=== PATIENT | female | born 1950 | race African-American/Black ===

== ENCOUNTER 2023-11-04 17:31 | Emergency (ER) | payer OTHER ==
[~2023-11-04] VITALS: Ht 167.6 cm; Wt 74.8 kg
[2023-11-04] MEDS ORDERED: OXYMETAZOLINE HCL NASAL SPRAY 30 ML BOTTLE NS ONE (18:33)
[2023-11-04] MEDS ORDERED: CLONIDINE HCL 0.1 MG TABLET ONE (18:34)
[2023-11-04] MEDS: OXYMETAZOLINE HCL NASAL SPRAY 30 ML BOTTLE NS ONE (18:39)
[2023-11-04] MEDS: CLONIDINE HCL 0.1 MG TABLET PO ONE (18:40)
[2023-11-04] MEDS ORDERED: TRANEXAMIC ACID 1,000 MG/10 ML VIAL ONE (19:42)
[2023-11-04] MEDS: TRANEXAMIC ACID 1,000 MG/10 ML VIAL NS ONE (19:59)
[2023-11-04] MEDS ORDERED: CLONIDINE HCL 0.1 MG TABLET PO ONE (20:00)
[2023-11-04] MEDS ORDERED: BENA20TA9 PO (21:21)
[2023-11-04] MEDS ORDERED: SODI88SP18 BNOSTRILS (21:21)
[2023-11-04 21:41] VITALS: BP 165/79; TEMP 98.5; O2SAT 98
== END 2023-11-04 21:41 | disposition home or self-care (01) ==
LOC: ER 18:56
DX: R04.0 Epistaxis (principal); I10 Essential (primary) hypertension; Z79.899 Other long term (current) drug therapy

== ENCOUNTER 2024-04-16 11:18 | Inpatient (IN) | payer OTHER ==
[~2024-04-16] VITALS: Ht 154.9 cm; Wt 56.2 kg
[2024-04-16] VITALS (14 sets, daily range): BP systolic 88–100; BP diastolic 47–74; TEMP 97.9; O2SAT 92–100
[~2024-04-16 11:18] MED LIST: BENA20TA9 PO; SODI88SP18 BNOSTRILS
[2024-04-16 11:55] LABS: BASOPHILS % (AUTO) 0.1 % (0.0-2.0); EOSINOPHILS % (AUTO) 0.3 % (0.0-6.0); HEMATOCRIT 26 % (33-45); LYMPHOCYTES # (AUTO) 0.5 K/uL (0.8-4.8); LYMPHOCYTES % (AUTO) 5.5 % (20.0-44.0); MEAN CORPUSCULAR HEMOGLOBIN 26 PG (26.0-33.0); MEAN CORPUSCULAR HGB CONC 31 g/dl (31.0-36.0); MEAN CORPUSCULAR VOLUME 85 fL (82-100); MONOCYTES # (AUTO) 0.3 K/uL (0.1-1.30); MONOCYTES % (AUTO) 3.7 % (2.0-12.0); NEUTROPHILS # (AUTO) 8.5 K/uL (1.8-8.9); NEUTROPHILS % (AUTO) 90.4 % (43.0-81.0); PLATELET COUNT (AUTO) 181 K/uL (150-450); RED BLOOD CELL COUNT(AUTO) 3.08 MIL/uL (4.0-5.2); WHITE BLOOD COUNT (AUTO) 9.4 K/uL (4.3-11.0)
[2024-04-16 11:58] LABS: ABG OXYGEN SATURATION 98.9 % (94.0-98.0); ABG PCO2 48.9 mmHg (32.0-45.0); ABG PH 7.215 (7.350-7.450); ABG PO2 159.2 mmHg (83.0-108.0); ABG TOTAL HEMOGLOBIN 8.1 G/dL (12.0-16.0); COHb 0.9 % (0.5-1.5); MetHb 0.3 % (0.0-1.5); O2Hb 97.7 % (94.0-97.0); SITE, ABG RIGHT RADIAL
[2024-04-16] MEDS ORDERED: DIGOXIN INJ 0.5 MG/2 ML AMPUL ONE (11:58)
[2024-04-16] MEDS ORDERED: FUROSEMIDE 40 MG/4 ML VIAL ONE (11:59)
[2024-04-16 12:05] LABS: CARBON DIOXIDE 22 mmol/L (21-32); CHLORIDE 99 mmol/L (98-107); CREATININE 3.7 mg/dL (0.6-1.3); GLUCOSE 118 mg/dL (74-106); SODIUM SERUM 133 mmol/L (136-145); UREA NITROGEN, BLOOD 55 mg/dL (7-18)
[2024-04-16 12:11] LABS: INR 1.4 (0.91-1.10); PROTHROMBIN TIME 14.2 SECS (9.2-11.1)
[2024-04-16 12:15] LABS: LACTIC ACID 7.3 mmol/L (0.4-2.0)
[2024-04-16 12:22] LABS: ALANINE AMINOTRANSFERASE 17 U/L (12-78); ALBUMIN 1.8 g/dL (3.4-5.0); ALKALINE PHOSPHATASE 43 U/L (46-116); ASPARTATE AMINOTRANSFERASE 37 U/L (15-37); BILIRUBIN,DIRECT 1.6 mg/dL (0.0-0.2); BILIRUBIN,TOTAL 2.2 mg/dL (0.2-1.0); TOTAL PROTEIN, SERUM 13.2 g/dL (6.4-8.2)
[2024-04-16] MEDS: DIGOXIN INJ 0.5 MG/2 ML AMPUL IV ONE (12:23)
[2024-04-16] MEDS: FUROSEMIDE 40 MG/4 ML VIAL IV ONE ×2 (12:23→17:21)
[2024-04-16] MEDS: CEFTRIAXONE 1GM BAG (ER ONLY) 50 ML IV ONE (12:40)
[2024-04-16] MEDS: AZITHROMYCIN 500 MG in IV D5W 250 ML IV ONE (13:00)
[2024-04-16] MEDS ORDERED: ACETAMINOPHEN 325 MG TABLET PO PRN (13:00)
[2024-04-16 13:10] LABS: NT-PRO BNP 84573 pg/mL (0-125)
[2024-04-16] MEDS ORDERED: CEFEPIME 2 GM in IV D5W 100 ML IV SCH (16:00)
[2024-04-16] MEDS ORDERED: ENOXAPARIN SODIUM 30 MG/0.3 ML DISP.SYRIN SQ SCH (16:00)
[2024-04-16] MEDS: AMIODARONE 150 MG in IV D5W 100 ML IV ONE (16:09)
[2024-04-16] MEDS: AMIODARONE 450 MG in IV D5W 250 ML IV ONE (16:25)
[2024-04-16] MEDS: VANCOMYCIN HCL 1.25 GM in IV D5W 250 ML IV ONE (17:18)
[2024-04-16] MEDS ORDERED: AMIODARONE 450 MG in IV D5W 241 ML IV PRN (17:30)
[2024-04-16] MEDS: CEFEPIME 1 GM in IV D5W 50 ML IV SCH (17:55)
[2024-04-16] MEDS: ASPIRIN 300 MG/SUPP.RECT RC ONE (18:22)
[2024-04-16] MEDS: HEPARIN SODIUM, PORCINE 5000 UNITS/1 ML VIAL IV ONE (18:25)
[2024-04-16] MEDS: HEPARIN INFUSION/D5W 500 ML IV PRN (18:27)
[2024-04-16] MEDS: AMIODARONE 450 MG in IV D5W 241 ML IV PRN (22:46)
[2024-04-17] VITALS (43 sets, daily range): BP systolic 91–119; BP diastolic 49–74; TEMP 97.5–97.9; O2SAT 96–100
[2024-04-17 05:01] LABS: BASOPHILS % (AUTO) 0.4 % (0.0-2.0); EOSINOPHILS % (AUTO) 0.5 % (0.0-6.0); LYMPHOCYTES # (AUTO) 0.1 K/uL (0.8-4.8); LYMPHOCYTES % (AUTO) 3.8 % (20.0-44.0); MEAN CORPUSCULAR HEMOGLOBIN 26 PG (26.0-33.0); MEAN CORPUSCULAR HGB CONC 31 g/dl (31.0-36.0); MEAN CORPUSCULAR VOLUME 84 fL (82-100); MONOCYTES # (AUTO) 0.3 K/uL (0.1-1.30); MONOCYTES % (AUTO) 8.1 % (2.0-12.0); NEUTROPHILS # (AUTO) 2.9 K/uL (1.8-8.9); NEUTROPHILS % (AUTO) 87.2 % (43.0-81.0); PLATELET COUNT (AUTO) 118 K/uL (150-450); RED BLOOD CELL COUNT(AUTO) 2.26 MIL/uL (4.0-5.2); RED CELL DISTRIBUTION WIDTH 21.7 % (11.5-15.0); WHITE BLOOD COUNT (AUTO) 3.3 K/uL (4.3-11.0)
[2024-04-17 05:13] LABS: HEMATOCRIT 19 % (33-45)
[2024-04-17 05:56] LABS: ALANINE AMINOTRANSFERASE 9 U/L (12-78); ALKALINE PHOSPHATASE 24 U/L (46-116); ASPARTATE AMINOTRANSFERASE 17 U/L (15-37); BILIRUBIN,TOTAL 1.5 mg/dL (0.2-1.0); CALCIUM, SERUM 8.1 mg/dL (8.5-10.1); CARBON DIOXIDE 21 mmol/L (21-32); CHLORIDE 100 mmol/L (98-107); CREATININE 3.9 mg/dL (0.6-1.3); GLUCOSE 97 mg/dL (74-106); MAGNESIUM 2.1 mg/dL (1.8-2.4); PHOSPHORUS 5.4 mg/dL (2.5-4.9); POTASSIUM 4.8 mmol/L (3.5-5.1); SODIUM SERUM 134 mmol/L (136-145); TOTAL PROTEIN, SERUM 9.6 g/dL (6.4-8.2); UREA NITROGEN, BLOOD 64 mg/dL (7-18)
[2024-04-17 06:07] LABS: ALBUMIN 1.4 g/dL (3.4-5.0)
[2024-04-17 07:59] LABS: ABG BASE EXCESS -2.7 mmol/L (-2.0-3.0); ABG OXYGEN SATURATION 97.2 % (94.0-98.0); ABG PCO2 42.5 mmHg (32.0-45.0); ABG PH 7.347 (7.350-7.450); ABG TOTAL HEMOGLOBIN 7.4 G/dL (12.0-16.0); COHb 1.2 % (0.5-1.5); MetHb 0.3 % (0.0-1.5); O2Hb 95.7 % (94.0-97.0); SITE, ABG RIGHT RADIAL
[2024-04-17 09:05] LABS: EOSINOPHILS % (AUTO) 0.7 % (0.0-6.0); HEMATOCRIT 23 % (33-45); HEMOGLOBIN 7.3 g/dL (11.5-14.8); LYMPHOCYTES # (AUTO) 0.1 K/uL (0.8-4.8); LYMPHOCYTES % (AUTO) 3.7 % (20.0-44.0); MEAN CORPUSCULAR HEMOGLOBIN 26 PG (26.0-33.0); MEAN CORPUSCULAR HGB CONC 32 g/dl (31.0-36.0); MEAN CORPUSCULAR VOLUME 82 fL (82-100); MONOCYTES # (AUTO) 0.2 K/uL (0.1-1.30); MONOCYTES % (AUTO) 6.7 % (2.0-12.0); NEUTROPHILS # (AUTO) 3.1 K/uL (1.8-8.9); NEUTROPHILS % (AUTO) 88.9 % (43.0-81.0); PLATELET COUNT (AUTO) 125 K/uL (150-450); RED BLOOD CELL COUNT(AUTO) 2.81 MIL/uL (4.0-5.2); WHITE BLOOD COUNT (AUTO) 3.5 K/uL (4.3-11.0)
[2024-04-17 10:00] LABS: BAND % (MANUAL) 4 % (0.0-5.0); LYMPHOCYTES % (MANUAL) 3 % (16-48); NEUTROPHILS % (MANUAL) 43 (42-76); PLATELET ESTIMATE DECREASED
[2024-04-17 10:01] LABS: ANISOCYTOSIS 1+; HYPOCHROMASIA 1+
[2024-04-17] MEDS: ALBUMIN 25% 25 GM in PREMIX 1 EA IV SCH (11:47)
[2024-04-17] MEDS ORDERED: CEFTRIAXONE 1 G in IV D5W 50 ML IV SCH (13:00)
[2024-04-17] MEDS: AZITHROMYCIN 500 MG in IV D5W 250 ML IV SCH (13:01)
[2024-04-18] VITALS (25 sets, daily range): BP systolic 97–150; BP diastolic 53–89; TEMP 97.6–98.1; O2SAT 96–100
[2024-04-18 05:30] LABS: BASOPHILS % (AUTO) 0.1 % (0.0-2.0); EOSINOPHILS % (AUTO) 0.1 % (0.0-6.0); LYMPHOCYTES # (AUTO) 0.1 K/uL (0.8-4.8); LYMPHOCYTES % (AUTO) 1.8 % (20.0-44.0); MEAN CORPUSCULAR HEMOGLOBIN 26 PG (26.0-33.0); MEAN CORPUSCULAR HGB CONC 32 g/dl (31.0-36.0); MEAN CORPUSCULAR VOLUME 81 fL (82-100); MONOCYTES # (AUTO) 0.3 K/uL (0.1-1.30); PLATELET COUNT (AUTO) 129 K/uL (150-450); RED BLOOD CELL COUNT(AUTO) 2.49 MIL/uL (4.0-5.2); RED CELL DISTRIBUTION WIDTH 21.3 % (11.5-15.0); WHITE BLOOD COUNT (AUTO) 6.5 K/uL (4.3-11.0)
[2024-04-18 05:35] LABS: ALANINE AMINOTRANSFERASE 12 U/L (12-78); ALBUMIN 2.6 g/dL (3.4-5.0); ALKALINE PHOSPHATASE 26 U/L (46-116); ASPARTATE AMINOTRANSFERASE 13 U/L (15-37); BILIRUBIN,TOTAL 1.7 mg/dL (0.2-1.0); CALCIUM, SERUM 8.3 mg/dL (8.5-10.1); CARBON DIOXIDE 23 mmol/L (21-32); CHLORIDE 98 mmol/L (98-107); CREATININE 4.8 mg/dL (0.6-1.3); GLUCOSE 105 mg/dL (74-106); MAGNESIUM 2.1 mg/dL (1.8-2.4); PHOSPHORUS 5.1 mg/dL (2.5-4.9); POTASSIUM 4.3 mmol/L (3.5-5.1); SODIUM SERUM 133 mmol/L (136-145); TOTAL PROTEIN, SERUM 9.6 g/dL (6.4-8.2)
[2024-04-18 05:39] LABS: CREATINE KINASE, TOTAL 44 U/L (26-192)
[2024-04-18 05:41] LABS: HEMATOCRIT 20 % (33-45); HEMOGLOBIN 6.5 g/dL (11.5-14.8)
[2024-04-18 05:49] LABS: UREA NITROGEN, BLOOD 83 mg/dL (7-18)
[2024-04-18 06:37] LABS: BAND % (MANUAL) 3 % (0.0-5.0); BASOPHILS % (MANUAL) 0 % (0.0-2.0); EOSINOPHILS % (MANUAL) 0 % (0-4); LYMPHOCYTES % (MANUAL) 2 % (16-48); MONOCYTES % (MANUAL) 5 % (0-11.0); NEUTROPHILS % (MANUAL) 90 (42-76)
[2024-04-18 06:38] LABS: ANISOCYTOSIS 1+; HYPOCHROMASIA 1+; PLATELET ESTIMATE DECREASED; TARGET CELLS 1+
[2024-04-18 08:05] LABS: ABG BASE EXCESS -4.9 mmol/L (-2.0-3.0); ABG PCO2 40.7 mmHg (32.0-45.0); ABG PH 7.325 (7.350-7.450); ABG TOTAL HEMOGLOBIN 7.1 G/dL (12.0-16.0); COHb 1.6 % (0.5-1.5); MetHb 0.3 % (0.0-1.5); O2Hb 95.2 % (94.0-97.0); SITE, ABG RIGHT RADIAL
[2024-04-18 11:38] LABS: IRON, SERUM 14 ug/dl (50-175); TOTAL IRON BINDING CAPACITY 157 ug/dl (250-450)
[2024-04-18 11:55] LABS: FERRITIN 151 ng/mL (8-388)
[2024-04-18] MEDS: DOXYCYCLINE 100 MG in IV D5W 100 ML IV SCH (23:04)
[2024-04-19] VITALS (30 sets, daily range): BP systolic 96–151; BP diastolic 53–95; TEMP 97.4–98.2; O2SAT 85–100
[2024-04-19 09:08] LABS: PTH, INTACT 96 pg/mL (15-65)
[2024-04-19 09:36] LABS: BASOPHILS % (AUTO) 0.1 % (0.0-2.0); HEMATOCRIT 25 % (33-45); HEMOGLOBIN 8.1 g/dL (11.5-14.8); LYMPHOCYTES # (AUTO) 0.4 K/uL (0.8-4.8); LYMPHOCYTES % (AUTO) 2.3 % (20.0-44.0); MEAN CORPUSCULAR HEMOGLOBIN 26 PG (26.0-33.0); MEAN CORPUSCULAR HGB CONC 32 g/dl (31.0-36.0); MEAN CORPUSCULAR VOLUME 80 fL (82-100); NEUTROPHILS # (AUTO) 14.7 K/uL (1.8-8.9); NEUTROPHILS % (AUTO) 91.6 % (43.0-81.0); PLATELET COUNT (AUTO) 189 K/uL (150-450); RED BLOOD CELL COUNT(AUTO) 3.16 MIL/uL (4.0-5.2); RED CELL DISTRIBUTION WIDTH 20.9 % (11.5-15.0)
[2024-04-19 09:51] LABS: CALCIUM, SERUM 8.9 mg/dL (8.5-10.1); CREATININE 5.6 mg/dL (0.6-1.3); POTASSIUM 4.8 mmol/L (3.5-5.1)
[2024-04-19] MEDS: PANTOPRAZOLE 40 MG VIAL IV SCH (11:25)
[2024-04-19] MEDS: EPOETIN ALFA (10,000 UNIT) 10,000 UNIT/ML VIAL SQ SCH (14:33)
[2024-04-19] MEDS ORDERED: VANCOMYCIN HCL 1.25 GM in IV D5W 250 ML IV SCH (16:00)
[2024-04-20] VITALS (40 sets, daily range): BP systolic 94–145; BP diastolic 43–102; TEMP 97.2–97.8; O2SAT 92–100
[2024-04-20 05:44] LABS: BASOPHILS # (AUTO) 0.1 K/uL (0.0-0.2); BASOPHILS % (AUTO) 0.5 % (0.0-2.0); EOSINOPHILS % (AUTO) 0.1 % (0.0-6.0); HEMATOCRIT 24 % (33-45); HEMOGLOBIN 7.3 g/dL (11.5-14.8); LYMPHOCYTES # (AUTO) 0.2 K/uL (0.8-4.8); LYMPHOCYTES % (AUTO) 1.1 % (20.0-44.0); MEAN CORPUSCULAR HEMOGLOBIN 25 PG (26.0-33.0); MEAN CORPUSCULAR HGB CONC 31 g/dl (31.0-36.0); MEAN CORPUSCULAR VOLUME 81 fL (82-100); MONOCYTES # (AUTO) 0.6 K/uL (0.1-1.30); MONOCYTES % (AUTO) 4.1 % (2.0-12.0); NEUTROPHILS # (AUTO) 13.8 K/uL (1.8-8.9); NEUTROPHILS % (AUTO) 94.2 % (43.0-81.0); PLATELET COUNT (AUTO) 155 K/uL (150-450); RED BLOOD CELL COUNT(AUTO) 2.91 MIL/uL (4.0-5.2); RED CELL DISTRIBUTION WIDTH 20.6 % (11.5-15.0); WHITE BLOOD COUNT (AUTO) 14.7 K/uL (4.3-11.0)
[2024-04-20 05:49] LABS: CALCIUM, SERUM 8.9 mg/dL (8.5-10.1); CREATININE 5.9 mg/dL (0.6-1.3); MAGNESIUM 2.3 mg/dL (1.8-2.4); PHOSPHORUS 5.4 mg/dL (2.5-4.9); POTASSIUM 4.4 mmol/L (3.5-5.1)
[2024-04-20 09:07] LABS: *SPE A/G RATIO 0.5 (0.7-1.7); *SPE ALBUMIN 3.1 g/dL (2.9-4.4); *SPE ALPHA-1-GLOBULIN 0.5 g/dL (0.0-0.4); *SPE ALPHA-2-GLOBULIN 1.1 g/dL (0.4-1.0); *SPE BETA GLOBULIN 0.6 g/dL (0.7-1.3); *SPE GLOBULIN, TOTAL 5.8 g/dL (2.2-3.9); *SPE M-SPIKE 3.4 g/dL (Not Observed); *SPE PROTEIN TOTAL 8.9 g/dL (6.0-8.5); *SPEGAMMA GLOBULIN 3.7 g/dL (0.4-1.8)
[2024-04-20] MEDS ORDERED: EPOETIN ALFA (10,000 UNIT) 10,000 UNIT/ML VIAL SQ SCH (09:30)
[2024-04-20 10:37] LABS: ABG BASE EXCESS -6.1 mmol/L (-2.0-3.0); ABG OXYGEN SATURATION 97.7 % (94.0-98.0); ABG PCO2 46.4 mmHg (32.0-45.0); ABG PH 7.263 (7.350-7.450); ABG PO2 111.3 mmHg (83.0-108.0); ABG TOTAL HEMOGLOBIN 7.9 G/dL (12.0-16.0); COHb 1.3 % (0.5-1.5); MetHb 0.3 % (0.0-1.5); O2Hb 96.1 % (94.0-97.0); SITE, ABG RIGHT RADIAL
[2024-04-20] MEDS: SOD FERRIC GLUC 125 MG in IV NS 0.9% 100 ML IV SCH (14:26)
[2024-04-20 14:27] LABS: ABG BASE EXCESS -7.5 mmol/L (-2.0-3.0); ABG OXYGEN SATURATION 98.2 % (94.0-98.0); ABG PCO2 45.8 mmHg (32.0-45.0); ABG PH 7.243 (7.350-7.450); ABG PO2 116.8 mmHg (83.0-108.0); COHb 1.4 % (0.5-1.5); MetHb 0.1 % (0.0-1.5); O2Hb 96.7 % (94.0-97.0)
[2024-04-20 16:14] LABS: PROTEIN, BODY FLUID 6.9 G/DL
[2024-04-20 16:19] LABS: WBC, BODY FLUID 26716 /cu. mm. (0-200)
[2024-04-20 16:59] LABS: TOTAL VOLUME,BODY FLUID 1100 mL
[2024-04-20 17:35] LABS: APPEARANCE,SPUN,BODY FLUID CLEAR (CLEAR)
[2024-04-20 20:27] LABS: MACROPHAGES, BODY FLUID 2; MONOCYTES,BODY FLUID 10 %; POLYNUCLEAR, BODY FLUID 72 % (0-25)
[2024-04-21] VITALS (87 sets, daily range): BP systolic 83–135; BP diastolic 38–88; TEMP 97.5–97.9; O2SAT 90–100
[2024-04-21 08:04] LABS: ABG BASE EXCESS -2.9 mmol/L (-2.0-3.0); ABG PCO2 46.5 mmHg (32.0-45.0); ABG PH 7.315 (7.350-7.450); ABG TOTAL HEMOGLOBIN 7.5 G/dL (12.0-16.0); COHb 1.3 % (0.5-1.5); MetHb 0.1 % (0.0-1.5); O2Hb 96.6 % (94.0-97.0); SITE, ABG RIGHT BRACHIAL
[2024-04-21 10:43] LABS: CALCIUM, SERUM 7.9 mg/dL (8.5-10.1); CARBON DIOXIDE 27 mmol/L (21-32); CHLORIDE 99 mmol/L (98-107); CREATININE 5.2 mg/dL (0.6-1.3); GLUCOSE 99 mg/dL (74-106); SODIUM SERUM 135 mmol/L (136-145)
[2024-04-21 10:44] LABS: BASOPHILS % (AUTO) 0.1 % (0.0-2.0); HEMATOCRIT 21 % (33-45); LYMPHOCYTES # (AUTO) 0.2 K/uL (0.8-4.8); MEAN CORPUSCULAR HEMOGLOBIN 25 PG (26.0-33.0); MEAN CORPUSCULAR HGB CONC 31 g/dl (31.0-36.0); MEAN CORPUSCULAR VOLUME 79 fL (82-100); MONOCYTES # (AUTO) 0.4 K/uL (0.1-1.30); MONOCYTES % (AUTO) 2.4 % (2.0-12.0); NEUTROPHILS # (AUTO) 16.8 K/uL (1.8-8.9); NEUTROPHILS % (AUTO) 96.5 % (43.0-81.0); PLATELET COUNT (AUTO) 147 K/uL (150-450); RED BLOOD CELL COUNT(AUTO) 2.59 MIL/uL (4.0-5.2); RED CELL DISTRIBUTION WIDTH 20.6 % (11.5-15.0); WHITE BLOOD COUNT (AUTO) 17.4 K/uL (4.3-11.0)
[2024-04-21 10:45] LABS: UREA NITROGEN, BLOOD 98 mg/dL (7-18)
[2024-04-21 10:47] LABS: INR 1.14 (0.91-1.10)
[2024-04-21 10:53] LABS: HEMOGLOBIN 6.4 g/dL (11.5-14.8)
[2024-04-21 14:00] LABS: BAND % (MANUAL) 2 % (0.0-5.0); LYMPHOCYTES % (MANUAL) 2 % (16-48)
[2024-04-21 14:01] LABS: ANISOCYTOSIS 2+; HYPOCHROMASIA 1+; MONOCYTES % (MANUAL) 3 % (0-11.0); MYELOCYTES % 1 % (0-0); NEUTROPHILS % (MANUAL) 92 (42-76)
[2024-04-21 14:02] LABS: PLATELET ESTIMATE DECREASED; TARGET CELLS 1+
[2024-04-21] MEDS: IV NS 0.9% 250 ML IV PRN (20:01)
[2024-04-22] VITALS (78 sets, daily range): BP systolic 95–143; BP diastolic 43–79; TEMP 97.3–97.8; O2SAT 97–100
[2024-04-22 05:36] LABS: BASOPHILS % (AUTO) 0.1 % (0.0-2.0); EOSINOPHILS % (AUTO) 0.1 % (0.0-6.0); LYMPHOCYTES # (AUTO) 0.2 K/uL (0.8-4.8); MEAN CORPUSCULAR HEMOGLOBIN 26 PG (26.0-33.0); MEAN CORPUSCULAR HGB CONC 33 g/dl (31.0-36.0); MEAN CORPUSCULAR VOLUME 78 fL (82-100); MONOCYTES # (AUTO) 0.4 K/uL (0.1-1.30); MONOCYTES % (AUTO) 2.6 % (2.0-12.0); NEUTROPHILS # (AUTO) 15.7 K/uL (1.8-8.9); NEUTROPHILS % (AUTO) 96.2 % (43.0-81.0); PLATELET COUNT (AUTO) 131 K/uL (150-450); RED BLOOD CELL COUNT(AUTO) 2.26 MIL/uL (4.0-5.2); RED CELL DISTRIBUTION WIDTH 19.9 % (11.5-15.0); WHITE BLOOD COUNT (AUTO) 16.4 K/uL (4.3-11.0)
[2024-04-22 06:01] LABS: CALCIUM, SERUM 8.1 mg/dL (8.5-10.1); CREATININE 4.1 mg/dL (0.6-1.3); POTASSIUM 3.5 mmol/L (3.5-5.1)
[2024-04-22 06:36] LABS: HEMOGLOBIN 5.8 g/dL (11.5-14.8)
[2024-04-22 06:37] LABS: HEMATOCRIT 18 % (33-45)
[2024-04-22 07:06] LABS: HEPATITIS B CORE AB, IgM Negative (Negative); HEPATITIS B CORE AB, TOTAL Negative (Negative); HEPATITIS B SURFACE AB Non Reactive (.)
[2024-04-22 09:58] LABS: ABG BASE EXCESS 0.5 mmol/L (-2.0-3.0); ABG OXYGEN SATURATION 99.3 % (94.0-98.0); ABG PCO2 40.7 mmHg (32.0-45.0); ABG PH 7.409 (7.350-7.450); ABG PO2 155.6 mmHg (83.0-108.0); ABG TOTAL HEMOGLOBIN 6.8 G/dL (12.0-16.0); COHb 1.6 % (0.5-1.5); MetHb 0.3 % (0.0-1.5); O2Hb 97.4 % (94.0-97.0); SITE, ABG LEFT RADIAL
[2024-04-22 12:17] LABS: ANISOCYTOSIS 1+; BAND % (MANUAL) 5 % (0.0-5.0); BASOPHILS % (MANUAL) 0 % (0.0-2.0); EOSINOPHILS % (MANUAL) 0 % (0-4); HYPOCHROMASIA 1+; LYMPHOCYTES % (MANUAL) 3 % (16-48); MONOCYTES % (MANUAL) 2 % (0-11.0); NEUTROPHILS % (MANUAL) 90 (42-76); PLATELET ESTIMATE DECREASED
[2024-04-22] MEDS: NEPRO 1,000 ML BOTTLE GT PRN (15:18)
[2024-04-22] MEDS: FOLIC ACID 1 MG TABLET PO SCH (17:49)
[2024-04-22 19:47] LABS: RHEUMATOID FACTOR SCREEN NEGATIVE (NEGATIVE)
[2024-04-22 20:00] LABS: INR 1.23 (0.91-1.10); PARTIAL THROMBOPLASTIN TIME 41.9 SEC (24.3-34.3); PROTHROMBIN TIME 12.9 SECS (9.2-11.1)
[2024-04-22 20:09] LABS: BILIRUBIN,DIRECT 0.8 mg/dL (0.0-0.2); BILIRUBIN,TOTAL 1.2 mg/dL (0.2-1.0)
[2024-04-23] VITALS (26 sets, daily range): BP systolic 105–142; BP diastolic 44–72; TEMP 97.1–98; O2SAT 99–100
[2024-04-23 03:54] LABS: D-DIMER 16.83 mg/L(FEU (0.17-0.50)
[2024-04-23 08:40] LABS: BASOPHILS % (AUTO) 0.1 % (0.0-2.0); EOSINOPHILS % (AUTO) 0.2 % (0.0-6.0); INR 1.22 (0.91-1.10); LYMPHOCYTES # (AUTO) 0.2 K/uL (0.8-4.8); MEAN CORPUSCULAR HEMOGLOBIN 25 PG (26.0-33.0); MEAN CORPUSCULAR HGB CONC 31 g/dl (31.0-36.0); MEAN CORPUSCULAR VOLUME 79 fL (82-100); MONOCYTES # (AUTO) 0.5 K/uL (0.1-1.30); MONOCYTES % (AUTO) 2.6 % (2.0-12.0); NEUTROPHILS # (AUTO) 17.9 K/uL (1.8-8.9); NEUTROPHILS % (AUTO) 96.1 % (43.0-81.0); PARTIAL THROMBOPLASTIN TIME 35.4 SEC (24.3-34.3); PLATELET COUNT (AUTO) 142 K/uL (150-450); PROTHROMBIN TIME 12.8 SECS (9.2-11.1); RED BLOOD CELL COUNT(AUTO) 2.38 MIL/uL (4.0-5.2); RED CELL DISTRIBUTION WIDTH 20.8 % (11.5-15.0); WHITE BLOOD COUNT (AUTO) 18.6 K/uL (4.3-11.0)
[2024-04-23 08:43] LABS: D-DIMER 14.35 mg/L(FEU (0.17-0.50)
[2024-04-23 08:55] LABS: CALCIUM, SERUM 8.5 mg/dL (8.5-10.1); POTASSIUM 3.7 mmol/L (3.5-5.1)
[2024-04-23 08:56] LABS: HEMOGLOBIN 5.9 g/dL (11.5-14.8)
[2024-04-23 08:57] LABS: HEMATOCRIT 19 % (33-45)
[2024-04-23 13:37] LABS: ANISOCYTOSIS 1+; HYPOCHROMASIA 1+; LYMPHOCYTES % (MANUAL) 1 % (16-48); MONOCYTES % (MANUAL) 3 % (0-11.0); MYELOCYTES % 1 % (0-0); NEUTROPHILS % (MANUAL) 94 (42-76); PLATELET ESTIMATE DECREASED; PROMYELOCYTES % 1 % (0-0)
[2024-04-23 13:38] LABS: TARGET CELLS 1+
[2024-04-23] MEDS: EPOETIN ALFA (10,000 UNIT) 10,000 UNIT/ML VIAL SQ SCH (14:01)
[2024-04-24] VITALS (24 sets, daily range): BP systolic 124–166; BP diastolic 42–107; TEMP 97–98.8; O2SAT 96–100
[2024-04-24 05:07] LABS: BASOPHILS % (AUTO) 0.1 % (0.0-2.0); EOSINOPHILS % (AUTO) 0.2 % (0.0-6.0); LYMPHOCYTES # (AUTO) 0.2 K/uL (0.8-4.8); LYMPHOCYTES % (AUTO) 1.1 % (20.0-44.0); MEAN CORPUSCULAR HEMOGLOBIN 25 PG (26.0-33.0); MEAN CORPUSCULAR HGB CONC 31 g/dl (31.0-36.0); MEAN CORPUSCULAR VOLUME 80 fL (82-100); MONOCYTES # (AUTO) 0.5 K/uL (0.1-1.30); MONOCYTES % (AUTO) 2.7 % (2.0-12.0); NEUTROPHILS # (AUTO) 18.9 K/uL (1.8-8.9); NEUTROPHILS % (AUTO) 95.9 % (43.0-81.0); PLATELET COUNT (AUTO) 149 K/uL (150-450); RED BLOOD CELL COUNT(AUTO) 2.41 MIL/uL (4.0-5.2); WHITE BLOOD COUNT (AUTO) 19.7 K/uL (4.3-11.0)
[2024-04-24 05:16] LABS: HEMATOCRIT 19 % (33-45)
[2024-04-24 05:18] LABS: CALCIUM, SERUM 8.4 mg/dL (8.5-10.1); CARBON DIOXIDE 28 mmol/L (21-32); CHLORIDE 101 mmol/L (98-107); CREATININE 4.2 mg/dL (0.6-1.3); GLUCOSE 120 mg/dL (74-106); POTASSIUM 3.8 mmol/L (3.5-5.1); SODIUM SERUM 134 mmol/L (136-145); UREA NITROGEN, BLOOD 61 mg/dL (7-18)
[2024-04-24 06:48] LABS: ANISOCYTOSIS 1+; HYPOCHROMASIA 2+; LYMPHOCYTES % (MANUAL) 1 % (16-48); METAMYELOCYTES % 1 % (0-0); MONOCYTES % (MANUAL) 2 % (0-11.0); MYELOCYTES % 1 % (0-0); NEUTROPHILS % (MANUAL) 95 (42-76); PLATELET ESTIMATE ADEQUATE
[2024-04-24 06:50] LABS: TARGET CELLS 1+
[2024-04-24] MEDS ORDERED: PANTOPRAZOLE 40 MG TABLET.DR PO SCH (09:00)
[2024-04-24] MEDS ORDERED: PHARMACY TO CHANGE PO MEDS TO GT/NG XX PRN (09:00)
[2024-04-24] MEDS ORDERED: EPOETIN ALFA (10,000 UNIT) 10,000 UNIT/ML VIAL SQ SCH (09:30)
[2024-04-24] MEDS: PANTOPRAZOLE 40 MG/PACK PACK GT SCH (09:40)
[2024-04-24] MEDS: FOLIC ACID 1 MG TABLET GT SCH (09:40)
[2024-04-24] MEDS: hydrALAZINE HCL IV 20 MG VIAL IV PRN (21:22)
[2024-04-25] VITALS (24 sets, daily range): BP systolic 111–158; BP diastolic 46–75; TEMP 96.8–98.2; O2SAT 93–100
[2024-04-25 05:36] LABS: CALCIUM, SERUM 8.5 mg/dL (8.5-10.1); CARBON DIOXIDE 29 mmol/L (21-32); CHLORIDE 100 mmol/L (98-107); CREATININE 3.5 mg/dL (0.6-1.3); GLUCOSE 147 mg/dL (74-106); POTASSIUM 4.4 mmol/L (3.5-5.1); SODIUM SERUM 136 mmol/L (136-145); UREA NITROGEN, BLOOD 51 mg/dL (7-18)
[2024-04-25 05:40] LABS: INR 1.18 (0.91-1.10); PARTIAL THROMBOPLASTIN TIME 31.8 SEC (24.3-34.3); PROTHROMBIN TIME 12.4 SECS (9.2-11.1)
[2024-04-25 05:43] LABS: EOSINOPHILS % (AUTO) 0.1 % (0.0-6.0); HEMATOCRIT 21 % (33-45); LYMPHOCYTES # (AUTO) 0.3 K/uL (0.8-4.8); LYMPHOCYTES % (AUTO) 1.2 % (20.0-44.0); MEAN CORPUSCULAR HEMOGLOBIN 26 PG (26.0-33.0); MEAN CORPUSCULAR HGB CONC 32 g/dl (31.0-36.0); MEAN CORPUSCULAR VOLUME 81 fL (82-100); MONOCYTES # (AUTO) 0.6 K/uL (0.1-1.30); MONOCYTES % (AUTO) 2.3 % (2.0-12.0); NEUTROPHILS # (AUTO) 23.5 K/uL (1.8-8.9); NEUTROPHILS % (AUTO) 96.4 % (43.0-81.0); PLATELET COUNT (AUTO) 178 K/uL (150-450); RED BLOOD CELL COUNT(AUTO) 2.53 MIL/uL (4.0-5.2); RED CELL DISTRIBUTION WIDTH 21.1 % (11.5-15.0); WHITE BLOOD COUNT (AUTO) 24.4 K/uL (4.3-11.0)
[2024-04-25 05:44] LABS: D-DIMER 11.2 mg/L(FEU (0.17-0.50)
[2024-04-25 05:52] LABS: HEMOGLOBIN 6.5 g/dL (11.5-14.8)
[2024-04-25 07:10] LABS: FREE KAPPA LT CHAINS SERUM 34.5 mg/L (3.3-19.4); FREE LAMBDA LT CHAIN SERUM 1477.7 mg/L (5.7-26.3); KAPPA/LAMBDA RATIO SERUM 0.02 (0.26-1.65)
[2024-04-25 08:06] LABS: FOLIC ACID 3.6 ng/mL (>3.0); IMMUNOGLOBULIN A, SERUM 28 mg/dL (64-422); IMMUNOGLOBULIN G, SERUM 4481 mg/dL (586-1602); IMMUNOGLOBULIN M, SERUM 7 mg/dL (26-217)
[2024-04-25 08:20] LABS: ANISOCYTOSIS 1+; BAND % (MANUAL) 4 % (0.0-5.0); HYPOCHROMASIA 1+; LYMPHOCYTES % (MANUAL) 1 % (16-48); MONOCYTES % (MANUAL) 3 % (0-11.0); NEUTROPHILS % (MANUAL) 92 (42-76); PLATELET ESTIMATE ADEQUATE
[2024-04-25 08:21] LABS: STOMATOCYTES 1+; TARGET CELLS 1+
[2024-04-25 09:33] LABS: ABG BASE EXCESS 1.5 mmol/L (-2.0-3.0); ABG OXYGEN SATURATION 99.7 % (94.0-98.0); ABG PCO2 65.2 mmHg (32.0-45.0); ABG PH 7.264 (7.350-7.450); ABG PO2 431.9 mmHg (83.0-108.0); ABG TOTAL HEMOGLOBIN 7.1 G/dL (12.0-16.0); COHb 0.8 % (0.5-1.5); MetHb 0.3 % (0.0-1.5); O2Hb 98.6 % (94.0-97.0); SITE, ABG RIGHT RADIAL
[2024-04-25 14:28] LABS: ABG OXYGEN SATURATION 99.3 % (94.0-98.0); ABG PCO2 46.4 mmHg (32.0-45.0); ABG PH 7.387 (7.350-7.450); ABG PO2 211.6 mmHg (83.0-108.0); ABG TOTAL HEMOGLOBIN 6.6 G/dL (12.0-16.0); COHb 0.4 % (0.5-1.5); O2Hb 97.9 % (94.0-97.0); SITE, ABG RIGHT RADIAL
[2024-04-25] MEDS: ONDANSETRON HCL/PF 4 MG/2 ML VIAL IVP PRN (22:08)
[2024-04-26] VITALS (34 sets, daily range): BP systolic 130–159; BP diastolic 54–132; TEMP 97–98.2; O2SAT 94–100
[2024-04-26 05:19] LABS: CALCIUM, SERUM 8.8 mg/dL (8.5-10.1); POTASSIUM 4.2 mmol/L (3.5-5.1)
[2024-04-26 05:29] LABS: INR 1.18 (0.91-1.10); PARTIAL THROMBOPLASTIN TIME 30.8 SEC (24.3-34.3); PROTHROMBIN TIME 12.4 SECS (9.2-11.1)
[2024-04-26 05:51] LABS: D-DIMER 7.55 mg/L(FEU (0.17-0.50)
[2024-04-26 05:56] LABS: BASOPHILS % (AUTO) 0.1 % (0.0-2.0); EOSINOPHILS % (AUTO) 0.2 % (0.0-6.0); LYMPHOCYTES # (AUTO) 0.2 K/uL (0.8-4.8); LYMPHOCYTES % (AUTO) 1.1 % (20.0-44.0); MEAN CORPUSCULAR HEMOGLOBIN 26 PG (26.0-33.0); MEAN CORPUSCULAR HGB CONC 32 g/dl (31.0-36.0); MEAN CORPUSCULAR VOLUME 81 fL (82-100); MONOCYTES # (AUTO) 0.4 K/uL (0.1-1.30); MONOCYTES % (AUTO) 2.4 % (2.0-12.0); NEUTROPHILS # (AUTO) 17.9 K/uL (1.8-8.9); NEUTROPHILS % (AUTO) 96.2 % (43.0-81.0); PLATELET COUNT (AUTO) 176 K/uL (150-450); RED BLOOD CELL COUNT(AUTO) 2.21 MIL/uL (4.0-5.2); RED CELL DISTRIBUTION WIDTH 20.8 % (11.5-15.0); WHITE BLOOD COUNT (AUTO) 18.6 K/uL (4.3-11.0)
[2024-04-26 05:57] LABS: HEMATOCRIT 18 % (33-45); HEMOGLOBIN 5.7 g/dL (11.5-14.8)
[2024-04-26 06:24] LABS: LYMPHOCYTES % (MANUAL) 3 % (16-48); MONOCYTES % (MANUAL) 1 % (0-11.0); NEUTROPHILS % (MANUAL) 96 (42-76)
[2024-04-26 06:25] LABS: ANISOCYTOSIS 1+; HYPOCHROMASIA 1+; PLATELET ESTIMATE ADEQUATE; TARGET CELLS 1+
[2024-04-26] MEDS ORDERED: WATER FOR INJECTION STERILE IJ ONE (08:00)
[2024-04-26] MEDS ORDERED: ALTEPLASE CATHFLO IJ ONE (08:00)
[2024-04-26 08:23] LABS: ABG BASE EXCESS -0.1 mmol/L (-2.0-3.0); ABG OXYGEN SATURATION 97.6 % (94.0-98.0); ABG PCO2 48.8 mmHg (32.0-45.0); ABG PH 7.339 (7.350-7.450); ABG TOTAL HEMOGLOBIN 6.4 G/dL (12.0-16.0); MetHb 0.5 % (0.0-1.5); O2Hb 96.1 % (94.0-97.0); SITE, ABG RIGHT RADIAL
[2024-04-26] MEDS: WATER FOR INJECTION STERILE IJ ONE (08:49)
[2024-04-26] MEDS: ALTEPLASE CATHFLO IJ ONE (08:49)
[2024-04-26 14:03] LABS: IRON, SERUM 35 ug/dl (50-175); TOTAL IRON BINDING CAPACITY 219 ug/dl (250-450)
[2024-04-26 14:15] LABS: FERRITIN 759 ng/mL (8-388)
[2024-04-26 17:07] LABS: *ANA ANTI-CENTROMERE B AB <0.2 AI (0.0-0.9); *ANA ANTI-DNA(DS) AB, QN <1 IU/mL (0-9); *ANA ANTI-JO-1 <0.2 AI (0.0-0.9); *ANA ANTICHROMATIN ANTIBODY 0.3 AI (0.0-0.9); *ANA RNP ANTIBODIES <0.2 AI (0.0-0.9); *ANA SJOGREN'S ANTI-SS-A <0.2 AI (0.0-0.9); *ANA SJOGREN'S ANTI-SS-B <0.2 AI (0.0-0.9); *ANASMITH AB <0.2 AI (0.0-0.9)
[2024-04-26 18:09] LABS: BETA-2 MICROGLOBULIN, SERUM 12.7 mg/L (0.6-2.4)
[2024-04-26 20:06] LABS: *ANAANTI-SCLERODERMA-70 AB <0.2 AI (0.0-0.9)
[2024-04-27] VITALS (35 sets, daily range): BP systolic 110–160; BP diastolic 49–85; TEMP 97–99.1; O2SAT 96–100
[2024-04-27 04:40] LABS: BASOPHILS % (AUTO) 0.1 % (0.0-2.0); EOSINOPHILS % (AUTO) 0.1 % (0.0-6.0); HEMATOCRIT 21 % (33-45); LYMPHOCYTES # (AUTO) 0.2 K/uL (0.8-4.8); LYMPHOCYTES % (AUTO) 1.2 % (20.0-44.0); MEAN CORPUSCULAR HEMOGLOBIN 25 PG (26.0-33.0); MEAN CORPUSCULAR HGB CONC 31 g/dl (31.0-36.0); MEAN CORPUSCULAR VOLUME 80 fL (82-100); MONOCYTES # (AUTO) 0.5 K/uL (0.1-1.30); MONOCYTES % (AUTO) 2.8 % (2.0-12.0); NEUTROPHILS # (AUTO) 15.5 K/uL (1.8-8.9); NEUTROPHILS % (AUTO) 95.8 % (43.0-81.0); PLATELET COUNT (AUTO) 204 K/uL (150-450); RED BLOOD CELL COUNT(AUTO) 2.56 MIL/uL (4.0-5.2); RED CELL DISTRIBUTION WIDTH 19.9 % (11.5-15.0); WHITE BLOOD COUNT (AUTO) 16.2 K/uL (4.3-11.0)
[2024-04-27 05:00] LABS: INR 1.3 (0.91-1.10); PARTIAL THROMBOPLASTIN TIME 29.6 SEC (24.3-34.3); PROTHROMBIN TIME 13.5 SECS (9.2-11.1)
[2024-04-27 05:07] LABS: D-DIMER 7.35 mg/L(FEU (0.17-0.50)
[2024-04-27 05:21] LABS: CALCIUM, SERUM 8.3 mg/dL (8.5-10.1); CREATININE 3.9 mg/dL (0.6-1.3); MAGNESIUM 1.9 mg/dL (1.8-2.4); PHOSPHORUS 3.7 mg/dL (2.5-4.9); POTASSIUM 3.8 mmol/L (3.5-5.1)
[2024-04-27 05:32] LABS: HEMOGLOBIN 6.4 g/dL (11.5-14.8)
[2024-04-27 05:52] LABS: BAND % (MANUAL) 1 % (0.0-5.0); EOSINOPHILS % (MANUAL) 1 % (0-4); LYMPHOCYTES % (MANUAL) 1 % (16-48); MONOCYTES % (MANUAL) 1 % (0-11.0); NEUTROPHILS % (MANUAL) 96 (42-76)
[2024-04-27 05:53] LABS: ANISOCYTOSIS 2+; HYPOCHROMASIA 2+; PLATELET ESTIMATE ADEQUATE; TARGET CELLS 1+
[2024-04-27 08:35] LABS: ABG BASE EXCESS 4.6 mmol/L (-2.0-3.0); ABG OXYGEN SATURATION 98.7 % (94.0-98.0); ABG PCO2 49.7 mmHg (32.0-45.0); ABG PH 7.398 (7.350-7.450); ABG PO2 121.3 mmHg (83.0-108.0); ABG TOTAL HEMOGLOBIN 6.8 G/dL (12.0-16.0); COHb 1.2 % (0.5-1.5); MetHb 0.5 % (0.0-1.5); SITE, ABG RIGHT RADIAL
[2024-04-27] MEDS: FLUCONAZOLE (100 MG) 100 MG TABLET PO SCH (21:30)
[2024-04-27] MEDS: FLUCONAZOLE (100 MG) 100 MG TABLET PO ONE (23:46)
[2024-04-28] VITALS (31 sets, daily range): BP systolic 105–145; BP diastolic 50–73; TEMP 97.7–101.8; O2SAT 98–100
[2024-04-28 05:16] LABS: BASOPHILS % (AUTO) 0.1 % (0.0-2.0); EOSINOPHILS % (AUTO) 0.1 % (0.0-6.0); LYMPHOCYTES # (AUTO) 0.2 K/uL (0.8-4.8); LYMPHOCYTES % (AUTO) 1.8 % (20.0-44.0); MEAN CORPUSCULAR HEMOGLOBIN 25 PG (26.0-33.0); MEAN CORPUSCULAR HGB CONC 31 g/dl (31.0-36.0); MEAN CORPUSCULAR VOLUME 80 fL (82-100); MONOCYTES # (AUTO) 0.3 K/uL (0.1-1.30); MONOCYTES % (AUTO) 2.5 % (2.0-12.0); NEUTROPHILS # (AUTO) 11.1 K/uL (1.8-8.9); NEUTROPHILS % (AUTO) 95.5 % (43.0-81.0); PLATELET COUNT (AUTO) 201 K/uL (150-450); RED CELL DISTRIBUTION WIDTH 19.9 % (11.5-15.0); WHITE BLOOD COUNT (AUTO) 11.6 K/uL (4.3-11.0)
[2024-04-28 05:56] LABS: CALCIUM, SERUM 8.2 mg/dL (8.5-10.1); CREATININE 5.5 mg/dL (0.6-1.3); MAGNESIUM 2.3 mg/dL (1.8-2.4); POTASSIUM 4.6 mmol/L (3.5-5.1)
[2024-04-28 06:10] LABS: HEMATOCRIT 18 % (33-45); HEMOGLOBIN 5.5 g/dL (11.5-14.8)
[2024-04-28] MEDS ORDERED: EPOETIN ALFA-EPBX 10,000 UNIT/ML VIAL IV PRN (07:00)
[2024-04-28 07:40] LABS: ANISOCYTOSIS 1+; BAND % (MANUAL) 5 % (0.0-5.0); BASOPHILS % (MANUAL) 0 % (0.0-2.0); EOSINOPHILS % (MANUAL) 0 % (0-4); HYPOCHROMASIA 2+; LYMPHOCYTES % (MANUAL) 2 % (16-48); MONOCYTES % (MANUAL) 3 % (0-11.0); NEUTROPHILS % (MANUAL) 90 (42-76); PLATELET ESTIMATE ADEQUATE; TARGET CELLS 1+
[2024-04-28] MEDS: FERROUS SULFATE (325 MG) 325 MG/TAB TABLET NG SCH (09:15)
[2024-04-28 11:27] LABS: ABG BASE EXCESS 1.1 mmol/L (-2.0-3.0); ABG OXYGEN SATURATION 96.3 % (94.0-98.0); ABG PCO2 48.4 mmHg (32.0-45.0); ABG PO2 92.6 mmHg (83.0-108.0); ABG TOTAL HEMOGLOBIN 6.5 G/dL (12.0-16.0); MetHb 0.4 % (0.0-1.5); SITE, ABG RIGHT RADIAL
[2024-04-28 18:00] LABS: INR 1.08 (0.91-1.10); PARTIAL THROMBOPLASTIN TIME 28.6 SEC (24.3-34.3); PROTHROMBIN TIME 11.4 SECS (9.2-11.1)
[2024-04-28 18:01] LABS: D-DIMER 7.48 mg/L(FEU (0.17-0.50)
[2024-04-28] MEDS: ACETAMINOPHEN 325 MG TABLET PO PRN (20:00)
[2024-04-29] VITALS (36 sets, daily range): BP systolic 108–139; BP diastolic 49–76; TEMP 97.7–100; O2SAT 98–100
[2024-04-29 06:09] LABS: INR 1.13 (0.91-1.10); PARTIAL THROMBOPLASTIN TIME 29.8 SEC (24.3-34.3); PROTHROMBIN TIME 11.9 SECS (9.2-11.1)
[2024-04-29 06:12] LABS: D-DIMER 6.4 mg/L(FEU (0.17-0.50)
[2024-04-29 06:15] LABS: CALCIUM, SERUM 8.3 mg/dL (8.5-10.1); CARBON DIOXIDE 29 mmol/L (21-32); CHLORIDE 101 mmol/L (98-107); CREATININE 3.8 mg/dL (0.6-1.3); GLUCOSE 119 mg/dL (74-106); MAGNESIUM 2.1 mg/dL (1.8-2.4); PHOSPHORUS 4.8 mg/dL (2.5-4.9); POTASSIUM 4.9 mmol/L (3.5-5.1); SODIUM SERUM 138 mmol/L (136-145); UREA NITROGEN, BLOOD 55 mg/dL (7-18)
[2024-04-29 06:23] LABS: BASOPHILS % (AUTO) 0.1 % (0.0-2.0); EOSINOPHILS % (AUTO) 0.1 % (0.0-6.0); LYMPHOCYTES # (AUTO) 0.2 K/uL (0.8-4.8); LYMPHOCYTES % (AUTO) 1.8 % (20.0-44.0); MEAN CORPUSCULAR HEMOGLOBIN 26 PG (26.0-33.0); MEAN CORPUSCULAR HGB CONC 32 g/dl (31.0-36.0); MEAN CORPUSCULAR VOLUME 81 fL (82-100); MONOCYTES # (AUTO) 0.3 K/uL (0.1-1.30); MONOCYTES % (AUTO) 2.7 % (2.0-12.0); NEUTROPHILS # (AUTO) 9.1 K/uL (1.8-8.9); NEUTROPHILS % (AUTO) 95.3 % (43.0-81.0); PLATELET COUNT (AUTO) 203 K/uL (150-450); RED BLOOD CELL COUNT(AUTO) 2.15 MIL/uL (4.0-5.2); RED CELL DISTRIBUTION WIDTH 19.8 % (11.5-15.0); WHITE BLOOD COUNT (AUTO) 9.6 K/uL (4.3-11.0)
[2024-04-29 06:51] LABS: HEMOGLOBIN 5.6 g/dL (11.5-14.8)
[2024-04-29 06:52] LABS: HEMATOCRIT 18 % (33-45)
[2024-04-29 08:25] LABS: ABG BASE EXCESS 1.1 mmol/L (-2.0-3.0); ABG OXYGEN SATURATION 94.8 % (94.0-98.0); ABG PCO2 49.1 mmHg (32.0-45.0); ABG PH 7.355 (7.350-7.450); ABG TOTAL HEMOGLOBIN 6.4 G/dL (12.0-16.0); COHb 1.4 % (0.5-1.5); MetHb 0.4 % (0.0-1.5); O2Hb 93.1 % (94.0-97.0)
[2024-04-29] MEDS ORDERED: ALTEPLASE 100 MG/VIAL VIAL IV ONE (08:30)
[2024-04-29 11:04] LABS: EOSINOPHILS % (MANUAL) 1 % (0-4); LYMPHOCYTES % (MANUAL) 1 % (16-48); MONOCYTES % (MANUAL) 3 % (0-11.0); NEUTROPHILS % (MANUAL) 95 (42-76); PLATELET ESTIMATE ADEQUATE
[2024-04-29 11:05] LABS: ANISOCYTOSIS 2+; TARGET CELLS 1+
[2024-04-29 11:06] LABS: STOMATOCYTES 1+
[2024-04-29] MEDS: WATER FOR INJECTION STERILE IJ ONE (13:58)
[2024-04-29] MEDS: ALTEPLASE CATHFLO IJ ONE (13:58)
[2024-04-30] VITALS (39 sets, daily range): BP systolic 96–136; BP diastolic 48–73; TEMP 97.2–99.2; O2SAT 99–100
[2024-04-30 05:13] LABS: CALCIUM, SERUM 8.1 mg/dL (8.5-10.1); CARBON DIOXIDE 33 mmol/L (21-32); CHLORIDE 100 mmol/L (98-107); CREATININE 5.3 mg/dL (0.6-1.3); GLUCOSE 116 mg/dL (74-106); PHOSPHORUS 4.9 mg/dL (2.5-4.9); POTASSIUM 5.6 mmol/L (3.5-5.1); SODIUM SERUM 132 mmol/L (136-145)
[2024-04-30 05:15] LABS: BASOPHILS % (AUTO) 0.4 % (0.0-2.0); LYMPHOCYTES # (AUTO) 0.2 K/uL (0.8-4.8); LYMPHOCYTES % (AUTO) 2.8 % (20.0-44.0); MEAN CORPUSCULAR HEMOGLOBIN 26 PG (26.0-33.0); MEAN CORPUSCULAR HGB CONC 32 g/dl (31.0-36.0); MEAN CORPUSCULAR VOLUME 80 fL (82-100); MONOCYTES # (AUTO) 0.4 K/uL (0.1-1.30); MONOCYTES % (AUTO) 4.5 % (2.0-12.0); NEUTROPHILS # (AUTO) 7.9 K/uL (1.8-8.9); NEUTROPHILS % (AUTO) 92.3 % (43.0-81.0); PLATELET COUNT (AUTO) 208 K/uL (150-450); RED BLOOD CELL COUNT(AUTO) 2.09 MIL/uL (4.0-5.2); RED CELL DISTRIBUTION WIDTH 19.8 % (11.5-15.0); WHITE BLOOD COUNT (AUTO) 8.5 K/uL (4.3-11.0)
[2024-04-30 05:25] LABS: HEMATOCRIT 17 % (33-45); HEMOGLOBIN 5.4 g/dL (11.5-14.8); UREA NITROGEN, BLOOD 93 mg/dL (7-18)
[2024-04-30 08:21] LABS: ANISOCYTOSIS 1+; HYPOCHROMASIA 2+; LYMPHOCYTES % (MANUAL) 2 % (16-48); MONOCYTES % (MANUAL) 2 % (0-11.0); NEUTROPHILS % (MANUAL) 96 (42-76); PLATELET ESTIMATE ADEQUATE; TARGET CELLS 1+
[2024-04-30 11:45] LABS: ABG BASE EXCESS -3.6 mmol/L (-2.0-3.0); ABG OXYGEN SATURATION 99.2 % (94.0-98.0); ABG PCO2 47.6 mmHg (32.0-45.0); ABG PH 7.295 (7.350-7.450); ABG PO2 185.4 mmHg (83.0-108.0); ABG TOTAL HEMOGLOBIN 6.1 G/dL (12.0-16.0); COHb 0.8 % (0.5-1.5); MetHb 0.6 % (0.0-1.5); O2Hb 97.8 % (94.0-97.0)
[2024-05-01] VITALS (26 sets, daily range): BP systolic 100–134; BP diastolic 53–95; TEMP 98.4–100.2; O2SAT 94–100
[2024-05-02] VITALS (24 sets, daily range): BP systolic 109–137; BP diastolic 59–97; TEMP 97.5–98.8; O2SAT 95–100
[2024-05-02 05:46] LABS: CALCIUM, SERUM 8.7 mg/dL (8.5-10.1); CREATININE 5.1 mg/dL (0.6-1.3); MAGNESIUM 2.5 mg/dL (1.8-2.4); PHOSPHORUS 6.4 mg/dL (2.5-4.9); POTASSIUM 5.4 mmol/L (3.5-5.1)
[2024-05-02 06:50] LABS: BASOPHILS % (AUTO) 0.5 % (0.0-2.0); EOSINOPHILS % (AUTO) 0.3 % (0.0-6.0); LYMPHOCYTES # (AUTO) 0.2 K/uL (0.8-4.8); LYMPHOCYTES % (AUTO) 3.7 % (20.0-44.0); MEAN CORPUSCULAR HEMOGLOBIN 26 PG (26.0-33.0); MEAN CORPUSCULAR HGB CONC 32 g/dl (31.0-36.0); MEAN CORPUSCULAR VOLUME 81 fL (82-100); MONOCYTES # (AUTO) 0.4 K/uL (0.1-1.30); MONOCYTES % (AUTO) 7.3 % (2.0-12.0); NEUTROPHILS # (AUTO) 4.8 K/uL (1.8-8.9); NEUTROPHILS % (AUTO) 88.2 % (43.0-81.0); PLATELET COUNT (AUTO) 207 K/uL (150-450); RED BLOOD CELL COUNT(AUTO) 2.04 MIL/uL (4.0-5.2); RED CELL DISTRIBUTION WIDTH 20.1 % (11.5-15.0); WHITE BLOOD COUNT (AUTO) 5.5 K/uL (4.3-11.0)
[2024-05-02 07:30] LABS: HEMATOCRIT 17 % (33-45); HEMOGLOBIN 5.2 g/dL (11.5-14.8)
[2024-05-02 08:49] LABS: ABG BASE EXCESS 1.3 mmol/L (-2.0-3.0); ABG OXYGEN SATURATION 94.3 % (94.0-98.0); ABG PCO2 47.1 mmHg (32.0-45.0); ABG PH 7.374 (7.350-7.450); ABG PO2 76.7 mmHg (83.0-108.0); ABG TOTAL HEMOGLOBIN 9.2 G/dL (12.0-16.0); COHb 1.2 % (0.5-1.5); MetHb 0.3 % (0.0-1.5); O2Hb 92.9 % (94.0-97.0); SITE, ABG RIGHT RADIAL
[2024-05-02 09:07] LABS: LYMPHOCYTES % (MANUAL) 3 % (16-48); MONOCYTES % (MANUAL) 3 % (0-11.0); NEUTROPHILS % (MANUAL) 94 (42-76)
[2024-05-02 09:08] LABS: PLATELET ESTIMATE ADEQUATE
[2024-05-02 09:09] LABS: ANISOCYTOSIS 1+; HYPOCHROMASIA 1+; TARGET CELLS 1+
[2024-05-03] VITALS (30 sets, daily range): BP systolic 98–151; BP diastolic 53–84; TEMP 97.8–98.5; O2SAT 94–100
[2024-05-03 04:53] LABS: CALCIUM, SERUM 8.2 mg/dL (8.5-10.1); CREATININE 3.3 mg/dL (0.6-1.3); MAGNESIUM 2.1 mg/dL (1.8-2.4); PHOSPHORUS 3.2 mg/dL (2.5-4.9); POTASSIUM 4.2 mmol/L (3.5-5.1)
[2024-05-03 04:54] LABS: BASOPHILS % (AUTO) 0.6 % (0.0-2.0); EOSINOPHILS % (AUTO) 0.4 % (0.0-6.0); LYMPHOCYTES # (AUTO) 0.2 K/uL (0.8-4.8); MEAN CORPUSCULAR HEMOGLOBIN 26 PG (26.0-33.0); MEAN CORPUSCULAR HGB CONC 32 g/dl (31.0-36.0); MEAN CORPUSCULAR VOLUME 80 fL (82-100); MONOCYTES # (AUTO) 0.4 K/uL (0.1-1.30); MONOCYTES % (AUTO) 6.9 % (2.0-12.0); NEUTROPHILS # (AUTO) 5.7 K/uL (1.8-8.9); NEUTROPHILS % (AUTO) 89.1 % (43.0-81.0); PLATELET COUNT (AUTO) 228 K/uL (150-450); RED CELL DISTRIBUTION WIDTH 19.6 % (11.5-15.0); WHITE BLOOD COUNT (AUTO) 6.4 K/uL (4.3-11.0)
[2024-05-03 06:00] LABS: HEMOGLOBIN 5.1 g/dL (11.5-14.8); RED BLOOD CELL COUNT(AUTO) 1.97 MIL/uL (4.0-5.2)
[2024-05-03 06:01] LABS: HEMATOCRIT 16 % (33-45)
[2024-05-03 11:32] LABS: BAND % (MANUAL) 3 % (0.0-5.0); NEUTROPHILS % (MANUAL) 90 (42-76)
[2024-05-03 11:32] LABS: ABG BASE EXCESS 6.7 mmol/L (-2.0-3.0); ABG OXYGEN SATURATION 97.7 % (94.0-98.0); ABG PH 7.344 (7.350-7.450); ABG PO2 105.1 mmHg (83.0-108.0); ABG TOTAL HEMOGLOBIN 5.6 G/dL (12.0-16.0); COHb 1.8 % (0.5-1.5); MetHb 0.3 % (0.0-1.5); O2Hb 95.6 % (94.0-97.0); SITE, ABG RIGHT RADIAL
[2024-05-03 11:33] LABS: ANISOCYTOSIS 1+; BASOPHILS % (MANUAL) 0 % (0.0-2.0); EOSINOPHILS % (MANUAL) 0 % (0-4); HYPOCHROMASIA 1+; LYMPHOCYTES % (MANUAL) 2 % (16-48); MONOCYTES % (MANUAL) 5 % (0-11.0); PLATELET ESTIMATE ADEQUATE; TARGET CELLS 1+
[2024-05-03] MEDS: DIGOXIN INJ 0.5 MG/2 ML AMPUL IV SCH (15:47)
[2024-05-04] VITALS (24 sets, daily range): BP systolic 118–164; BP diastolic 48–107; TEMP 97.6–98.3; O2SAT 93–100
[2024-05-04 10:24] LABS: ABG BASE EXCESS 4.3 mmol/L (-2.0-3.0); ABG OXYGEN SATURATION 98.3 % (94.0-98.0); ABG PCO2 48.6 mmHg (32.0-45.0); ABG TOTAL HEMOGLOBIN 5.5 G/dL (12.0-16.0); COHb 1.4 % (0.5-1.5); MetHb 0.3 % (0.0-1.5); O2Hb 96.6 % (94.0-97.0); SITE, ABG RIGHT RADIAL
[2024-05-05] VITALS (49 sets, daily range): BP systolic 118–179; BP diastolic 38–91; TEMP 97.6–98.3; O2SAT 96–100
[2024-05-05 13:04] LABS: ABG BASE EXCESS 4.2 mmol/L (-2.0-3.0); ABG OXYGEN SATURATION 98.7 % (94.0-98.0); ABG PCO2 58.2 mmHg (32.0-45.0); ABG PH 7.336 (7.350-7.450); ABG PO2 127.9 mmHg (83.0-108.0); ABG TOTAL HEMOGLOBIN 5.8 G/dL (12.0-16.0); COHb 1.6 % (0.5-1.5); MetHb 0.3 % (0.0-1.5); O2Hb 96.8 % (94.0-97.0); SITE, ABG LEFT BRACHIAL
[2024-05-05] MEDS: EPOETIN ALFA (20,000 UNIT) 20,000 UNIT/ML VIAL SQ SCH (16:41)
[2024-05-06] VITALS (31 sets, daily range): BP systolic 114–160; BP diastolic 47–82; TEMP 97.8–98.7; O2SAT 99–100
[2024-05-06 05:31] LABS: BASOPHILS % (AUTO) 0.5 % (0.0-2.0); EOSINOPHILS # (AUTO) 0.1 K/uL (0.0-0.7); EOSINOPHILS % (AUTO) 1.4 % (0.0-6.0); LYMPHOCYTES # (AUTO) 0.2 K/uL (0.8-4.8); LYMPHOCYTES % (AUTO) 5.6 % (20.0-44.0); MEAN CORPUSCULAR HEMOGLOBIN 26 PG (26.0-33.0); MEAN CORPUSCULAR HGB CONC 31 g/dl (31.0-36.0); MEAN CORPUSCULAR VOLUME 83 fL (82-100); MONOCYTES # (AUTO) 0.5 K/uL (0.1-1.30); MONOCYTES % (AUTO) 12.2 % (2.0-12.0); NEUTROPHILS # (AUTO) 3.5 K/uL (1.8-8.9); NEUTROPHILS % (AUTO) 80.3 % (43.0-81.0); PLATELET COUNT (AUTO) 251 K/uL (150-450); RED CELL DISTRIBUTION WIDTH 19.5 % (11.5-15.0); WHITE BLOOD COUNT (AUTO) 4.4 K/uL (4.3-11.0)
[2024-05-06 06:00] LABS: CALCIUM, SERUM 8.6 mg/dL (8.5-10.1)
[2024-05-06 06:17] LABS: HEMATOCRIT 15 % (33-45); HEMOGLOBIN 4.7 g/dL (11.5-14.8); RED BLOOD CELL COUNT(AUTO) 1.82 MIL/uL (4.0-5.2)
[2024-05-06 09:43] LABS: ANISOCYTOSIS 1+; BASOPHILS % (MANUAL) 0 % (0.0-2.0); EOSINOPHILS % (MANUAL) 1 % (0-4); HYPOCHROMASIA 1+; LYMPHOCYTES % (MANUAL) 7 % (16-48); MONOCYTES % (MANUAL) 9 % (0-11.0); NEUTROPHILS % (MANUAL) 83 (42-76); PLATELET ESTIMATE ADEQUATE; TARGET CELLS 1+
[2024-05-07] VITALS (24 sets, daily range): BP systolic 99–150; BP diastolic 44–85; TEMP 97.7–98.2; O2SAT 99–100
[2024-05-08] VITALS (25 sets, daily range): BP systolic 62–159; BP diastolic 42–86; TEMP 97.5–98.9; O2SAT 93–100
[2024-05-08 05:13] LABS: CALCIUM, SERUM 9.1 mg/dL (8.5-10.1); CARBON DIOXIDE 36 mmol/L (21-32); CHLORIDE 102 mmol/L (98-107); CREATININE 4.4 mg/dL (0.6-1.3); GLUCOSE 133 mg/dL (74-106); POTASSIUM 4.4 mmol/L (3.5-5.1); SODIUM SERUM 143 mmol/L (136-145); UREA NITROGEN, BLOOD 79 mg/dL (7-18)
[2024-05-09] VITALS (35 sets, daily range): BP systolic 111–150; BP diastolic 49–78; TEMP 97.5–98.7; O2SAT 98–100
[2024-05-09 04:51] LABS: BASOPHILS % (AUTO) 0.5 % (0.0-2.0); EOSINOPHILS # (AUTO) 0.1 K/uL (0.0-0.7); EOSINOPHILS % (AUTO) 1.6 % (0.0-6.0); LYMPHOCYTES # (AUTO) 0.4 K/uL (0.8-4.8); MEAN CORPUSCULAR HEMOGLOBIN 26 PG (26.0-33.0); MEAN CORPUSCULAR HGB CONC 31 g/dl (31.0-36.0); MEAN CORPUSCULAR VOLUME 84 fL (82-100); MONOCYTES # (AUTO) 0.5 K/uL (0.1-1.30); NEUTROPHILS # (AUTO) 4.9 K/uL (1.8-8.9); NEUTROPHILS % (AUTO) 82.9 % (43.0-81.0); PLATELET COUNT (AUTO) 263 K/uL (150-450); RED CELL DISTRIBUTION WIDTH 20.6 % (11.5-15.0); WHITE BLOOD COUNT (AUTO) 5.9 K/uL (4.3-11.0)
[2024-05-09 04:55] LABS: CALCIUM, SERUM 8.6 mg/dL (8.5-10.1); CREATININE 4.5 mg/dL (0.6-1.3); POTASSIUM 4.2 mmol/L (3.5-5.1)
[2024-05-09 05:01] LABS: RED BLOOD CELL COUNT(AUTO) 1.79 MIL/uL (4.0-5.2)
[2024-05-09 05:06] LABS: HEMATOCRIT 15 % (33-45); HEMOGLOBIN 4.7 g/dL (11.5-14.8)
[2024-05-09 11:16] LABS: EOSINOPHILS % (MANUAL) 1 % (0-4); LYMPHOCYTES % (MANUAL) 8 % (16-48); MONOCYTES % (MANUAL) 7 % (0-11.0); NEUTROPHILS % (MANUAL) 84 (42-76); PLATELET ESTIMATE ADEQUATE
[2024-05-09 11:17] LABS: ANISOCYTOSIS 1+; HYPOCHROMASIA 1+; STOMATOCYTES 1+
[2024-05-10] VITALS (40 sets, daily range): BP systolic 109–144; BP diastolic 50–74; TEMP 97.5–98.4; O2SAT 96–100
[2024-05-10 04:38] LABS: CALCIUM, SERUM 9.9 mg/dL (8.5-10.1); CREATININE 5.9 mg/dL (0.6-1.3); POTASSIUM 4.7 mmol/L (3.5-5.1)
[2024-05-10] MEDS: THERAHONEY GEL 1.5 OZ TUBE TP SCH (10:50)
[2024-05-10 14:09] LABS: MAGNESIUM 2.9 mg/dL (1.8-2.4); PHOSPHORUS 5.6 mg/dL (2.5-4.9)
[2024-05-11] VITALS (37 sets, daily range): BP systolic 116–154; BP diastolic 46–101; TEMP 97.7–98.9; O2SAT 97–100
[2024-05-12] VITALS (21 sets, daily range): BP systolic 112–164; BP diastolic 50–84; TEMP 97.5–97.8; O2SAT 93–100
[2024-05-12 05:09] LABS: CALCIUM, SERUM 9.4 mg/dL (8.5-10.1); CREATININE 4.9 mg/dL (0.6-1.3); POTASSIUM 4.7 mmol/L (3.5-5.1)
[2024-05-12 06:22] LABS: MAGNESIUM 2.7 mg/dL (1.8-2.4); PHOSPHORUS 4.6 mg/dL (2.5-4.9)
[2024-05-12 08:39] LABS: ABG BASE EXCESS 0.9 mmol/L (-2.0-3.0); ABG OXYGEN SATURATION 97.1 % (94.0-98.0); ABG PCO2 45.7 mmHg (32.0-45.0); ABG PH 7.375 (7.350-7.450); ABG PO2 99.3 mmHg (83.0-108.0); COHb 1.5 % (0.5-1.5); MetHb 0.3 % (0.0-1.5); O2Hb 95.4 % (94.0-97.0); SITE, ABG RIGHT RADIAL
[2024-05-13] VITALS: BP 111/53; TEMP 97.9; O2SAT 100
[2024-05-13 04:00] VITALS: BP 131/58; TEMP 98.1; O2SAT 96
[2024-05-13 08:10] VITALS: BP 137/55; TEMP 97.6; O2SAT 100
[2024-05-13] MEDS: ALTEPLASE CATHFLO 2 MG/VIAL XX STA (11:48)
[2024-05-13 12:10] VITALS: BP 128/58; TEMP 98; O2SAT 100
[2024-05-13 16:10] VITALS: BP 138/65; TEMP 97.9; O2SAT 100
[2024-05-13 20:00] VITALS: BP 133/57; TEMP 97.4; O2SAT 100
[2024-05-14] VITALS: BP 127/55; TEMP 97.8; O2SAT 100
[2024-05-14 04:00] VITALS: BP 131/57; TEMP 97.4; O2SAT 100
[2024-05-14 08:00] VITALS: BP 139/55; TEMP 97.6; O2SAT 100
[2024-05-14 08:05] LABS: CALCIUM, SERUM 8.9 mg/dL (8.5-10.1); POTASSIUM 5.4 mmol/L (3.5-5.1)
[2024-05-14] MEDS: SODIUM ZIRCONIUM CYCLOSILICATE 10 GM POWD.PACK NG ONE (10:28)
[2024-05-14 12:00] VITALS: BP 132/65; TEMP 97.3; O2SAT 97
[2024-05-14] MEDS: HEPARIN-LOCK FLUSH PORCINE PF 100 UNITS/1 ML (10 ML)DISP.SYRIN IVF PRN (15:48)
[2024-05-14 16:00] VITALS: BP 132/66; TEMP 98.2; O2SAT 100
[2024-05-14 20:00] VITALS: BP 136/58; TEMP 99.5; O2SAT 100
[2024-05-15] VITALS (7 sets, daily range): BP systolic 125–147; BP diastolic 60–75; TEMP 97.4–98.2; O2SAT 100
[2024-05-15 09:13] LABS: CALCIUM, SERUM 8.4 mg/dL (8.5-10.1); CREATININE 4.5 mg/dL (0.6-1.3); MAGNESIUM 2.5 mg/dL (1.8-2.4); PHOSPHORUS 3.3 mg/dL (2.5-4.9); POTASSIUM 3.9 mmol/L (3.5-5.1)
[2024-05-16] VITALS (7 sets, daily range): BP systolic 135–147; BP diastolic 54–68; TEMP 97.7–99; O2SAT 98–100
[2024-05-16 07:24] LABS: BASOPHILS % (AUTO) 0.2 % (0.0-2.0); EOSINOPHILS % (AUTO) 0.5 % (0.0-6.0); LYMPHOCYTES # (AUTO) 0.7 K/uL (0.8-4.8); LYMPHOCYTES % (AUTO) 7.7 % (20.0-44.0); MEAN CORPUSCULAR HEMOGLOBIN 27 PG (26.0-33.0); MEAN CORPUSCULAR HGB CONC 31 g/dl (31.0-36.0); MEAN CORPUSCULAR VOLUME 86 fL (82-100); MONOCYTES # (AUTO) 0.5 K/uL (0.1-1.30); MONOCYTES % (AUTO) 5.6 % (2.0-12.0); NEUTROPHILS # (AUTO) 7.6 K/uL (1.8-8.9); PLATELET COUNT (AUTO) 319 K/uL (150-450); RED CELL DISTRIBUTION WIDTH 24.2 % (11.5-15.0); WHITE BLOOD COUNT (AUTO) 8.8 K/uL (4.3-11.0)
[2024-05-16 07:35] LABS: RED BLOOD CELL COUNT(AUTO) 1.68 MIL/uL (4.0-5.2)
[2024-05-16 07:39] LABS: HEMATOCRIT 15 % (33-45); HEMOGLOBIN 4.5 g/dL (11.5-14.8)
[2024-05-16 08:53] LABS: CALCIUM, SERUM 8.5 mg/dL (8.5-10.1); CREATININE 5.5 mg/dL (0.6-1.3); POTASSIUM 4.5 mmol/L (3.5-5.1)
[2024-05-16 11:44] LABS: ANISOCYTOSIS 1+; HYPOCHROMASIA 1+; LYMPHOCYTES % (MANUAL) 8 % (16-48); MONOCYTES % (MANUAL) 4 % (0-11.0); MYELOCYTES % 1 % (0-0); NEUTROPHILS % (MANUAL) 87 (42-76); PLATELET ESTIMATE ADEQUATE
[2024-05-16 11:45] LABS: STOMATOCYTES 1+
[2024-05-17] VITALS: BP 137/60; TEMP 99; O2SAT 100
[2024-05-17 04:00] VITALS: BP 118/55; TEMP 98.4; O2SAT 100
[2024-05-17 07:19] LABS: BASOPHILS % (AUTO) 0.3 % (0.0-2.0); EOSINOPHILS % (AUTO) 0.4 % (0.0-6.0); LYMPHOCYTES # (AUTO) 0.9 K/uL (0.8-4.8); MEAN CORPUSCULAR HEMOGLOBIN 26 PG (26.0-33.0); MEAN CORPUSCULAR HGB CONC 30 g/dl (31.0-36.0); MEAN CORPUSCULAR VOLUME 88 fL (82-100); MONOCYTES # (AUTO) 0.6 K/uL (0.1-1.30); MONOCYTES % (AUTO) 6.8 % (2.0-12.0); NEUTROPHILS # (AUTO) 7.9 K/uL (1.8-8.9); NEUTROPHILS % (AUTO) 83.5 % (43.0-81.0); PLATELET COUNT (AUTO) 312 K/uL (150-450); RED CELL DISTRIBUTION WIDTH 25.6 % (11.5-15.0); WHITE BLOOD COUNT (AUTO) 9.5 K/uL (4.3-11.0)
[2024-05-17 07:38] LABS: RED BLOOD CELL COUNT(AUTO) 1.68 MIL/uL (4.0-5.2)
[2024-05-17 07:39] LABS: HEMATOCRIT 15 % (33-45); HEMOGLOBIN 4.4 g/dL (11.5-14.8)
[2024-05-17 08:00] VITALS: BP 138/55; TEMP 97.8; O2SAT 100
[2024-05-17 08:57] LABS: LYMPHOCYTES % (MANUAL) 7 % (16-48); MONOCYTES % (MANUAL) 4 % (0-11.0); NEUTROPHILS % (MANUAL) 89 (42-76); PLATELET ESTIMATE ADEQUATE
[2024-05-17 08:58] LABS: ANISOCYTOSIS 2+; HYPOCHROMASIA 1+
[2024-05-17 12:47] VITALS: BP 123/60; TEMP 98.4; O2SAT 100
[2024-05-17 16:32] VITALS: BP 118/55; TEMP 98.4; O2SAT 100
[2024-05-17 20:00] VITALS: BP 138/59; TEMP 98.2; O2SAT 100
[2024-05-18] VITALS (7 sets, daily range): BP systolic 120–137; BP diastolic 52–61; TEMP 97.7–98.6; O2SAT 95–100
[2024-05-18 09:02] LABS: BASOPHILS # (AUTO) 0.1 K/uL (0.0-0.2); BASOPHILS % (AUTO) 0.6 % (0.0-2.0); EOSINOPHILS # (AUTO) 0.1 K/uL (0.0-0.7); EOSINOPHILS % (AUTO) 0.6 % (0.0-6.0); LYMPHOCYTES # (AUTO) 1.1 K/uL (0.8-4.8); LYMPHOCYTES % (AUTO) 12.4 % (20.0-44.0); MEAN CORPUSCULAR HEMOGLOBIN 27 PG (26.0-33.0); MEAN CORPUSCULAR HGB CONC 30 g/dl (31.0-36.0); MEAN CORPUSCULAR VOLUME 91 fL (82-100); MONOCYTES # (AUTO) 0.8 K/uL (0.1-1.30); MONOCYTES % (AUTO) 8.5 % (2.0-12.0); NEUTROPHILS % (AUTO) 77.9 % (43.0-81.0); PLATELET COUNT (AUTO) 304 K/uL (150-450); RED CELL DISTRIBUTION WIDTH 26.5 % (11.5-15.0)
[2024-05-18 09:06] LABS: RED BLOOD CELL COUNT(AUTO) 1.75 MIL/uL (4.0-5.2)
[2024-05-18 09:07] LABS: HEMATOCRIT 16 % (33-45); HEMOGLOBIN 4.8 g/dL (11.5-14.8)
[2024-05-18] MEDS: Z GUARD REMEDY 4 OZ OINT TP PRN (09:37)
[2024-05-18 10:49] LABS: LYMPHOCYTES % (MANUAL) 8 % (16-48); MONOCYTES % (MANUAL) 7 % (0-11.0); NEUTROPHILS % (MANUAL) 85 (42-76); PLATELET ESTIMATE ADEQUATE
[2024-05-18 10:50] LABS: ANISOCYTOSIS 2+; HYPOCHROMASIA 1+
[2024-05-19] VITALS: BP 132/52; TEMP 98.1; O2SAT 100
[2024-05-19 04:00] VITALS: BP 127/56; TEMP 98.2; O2SAT 100
[2024-05-19 07:24] LABS: BASOPHILS % (AUTO) 0.5 % (0.0-2.0); EOSINOPHILS % (AUTO) 0.6 % (0.0-6.0); LYMPHOCYTES # (AUTO) 0.9 K/uL (0.8-4.8); LYMPHOCYTES % (AUTO) 10.8 % (20.0-44.0); MEAN CORPUSCULAR HEMOGLOBIN 27 PG (26.0-33.0); MEAN CORPUSCULAR HGB CONC 30 g/dl (31.0-36.0); MEAN CORPUSCULAR VOLUME 89 fL (82-100); MONOCYTES # (AUTO) 0.6 K/uL (0.1-1.30); MONOCYTES % (AUTO) 6.8 % (2.0-12.0); NEUTROPHILS # (AUTO) 6.8 K/uL (1.8-8.9); NEUTROPHILS % (AUTO) 81.3 % (43.0-81.0); PLATELET COUNT (AUTO) 288 K/uL (150-450); WHITE BLOOD COUNT (AUTO) 8.4 K/uL (4.3-11.0)
[2024-05-19 07:47] LABS: RED BLOOD CELL COUNT(AUTO) 1.67 MIL/uL (4.0-5.2)
[2024-05-19 07:50] LABS: HEMATOCRIT 15 % (33-45); HEMOGLOBIN 4.5 g/dL (11.5-14.8)
[2024-05-19 08:00] VITALS: BP 136/60; TEMP 97.7; O2SAT 100
[2024-05-19] MEDS: EPOETIN ALFA (20,000 UNIT) 20,000 UNIT/ML VIAL SQ SCH (10:14)
[2024-05-19 10:44] LABS: ANISOCYTOSIS 1+; EOSINOPHILS % (MANUAL) 1 % (0-4); HYPOCHROMASIA 1+; LYMPHOCYTES % (MANUAL) 11 % (16-48); MONOCYTES % (MANUAL) 4 % (0-11.0); NEUTROPHILS % (MANUAL) 84 (42-76); PLATELET ESTIMATE ADEQUATE
[2024-05-19 10:45] LABS: TARGET CELLS 1+
[2024-05-19 12:00] VITALS: BP 121/46; TEMP 97.5; O2SAT 100
[2024-05-19] MEDS ORDERED: HEPARIN SODIUM, PORCINE 1000 UNIT/1 ML VIAL IV ONE (15:00)
[2024-05-19 16:00] VITALS: BP 133/50; TEMP 97.5; O2SAT 100
[2024-05-19 20:00] VITALS: BP 145/74; TEMP 98.8; O2SAT 100
[2024-05-20] VITALS: BP 143/60; TEMP 98.5; O2SAT 100
[2024-05-20 04:00] VITALS: BP 142/60; TEMP 98.5; O2SAT 100
[2024-05-20 08:00] VITALS: BP 137/56; TEMP 98.6; O2SAT 100
[2024-05-20 12:00] VITALS: BP 152/69; TEMP 98.1; O2SAT 100
[2024-05-20 16:00] VITALS: BP 129/60; TEMP 97.5; O2SAT 100
[2024-05-20 20:00] VITALS: BP 140/52; TEMP 98.2; O2SAT 99
[2024-05-21] VITALS (7 sets, daily range): BP systolic 114–128; BP diastolic 55–72; TEMP 97.5–98.8; O2SAT 98–100
[2024-05-21] MEDS ORDERED: HEPARIN SODIUM, PORCINE 1,000 UNIT/ML VIAL IV ONE (08:00)
[2024-05-21 08:08] LABS: BASOPHILS # (AUTO) 0.1 K/uL (0.0-0.2); BASOPHILS % (AUTO) 1.2 % (0.0-2.0); EOSINOPHILS # (AUTO) 0.1 K/uL (0.0-0.7); EOSINOPHILS % (AUTO) 0.9 % (0.0-6.0); LYMPHOCYTES # (AUTO) 1.5 K/uL (0.8-4.8); LYMPHOCYTES % (AUTO) 15.8 % (20.0-44.0); MEAN CORPUSCULAR HEMOGLOBIN 27 PG (26.0-33.0); MEAN CORPUSCULAR HGB CONC 30 g/dl (31.0-36.0); MEAN CORPUSCULAR VOLUME 90 fL (82-100); MONOCYTES # (AUTO) 0.9 K/uL (0.1-1.30); MONOCYTES % (AUTO) 9.9 % (2.0-12.0); NEUTROPHILS # (AUTO) 6.8 K/uL (1.8-8.9); NEUTROPHILS % (AUTO) 72.2 % (43.0-81.0); PLATELET COUNT (AUTO) 270 K/uL (150-450); RED CELL DISTRIBUTION WIDTH 26.8 % (11.5-15.0); WHITE BLOOD COUNT (AUTO) 9.4 K/uL (4.3-11.0)
[2024-05-21 08:10] LABS: RED BLOOD CELL COUNT(AUTO) 1.73 MIL/uL (4.0-5.2)
[2024-05-21 08:12] LABS: HEMATOCRIT 16 % (33-45); HEMOGLOBIN 4.6 g/dL (11.5-14.8)
[2024-05-21 08:18] LABS: CALCIUM, SERUM 8.7 mg/dL (8.5-10.1); CREATININE 6.9 mg/dL (0.6-1.3); POTASSIUM 5.7 mmol/L (3.5-5.1)
[2024-05-21 09:18] LABS: BAND % (MANUAL) 1 % (0.0-5.0); EOSINOPHILS % (MANUAL) 1 % (0-4); LYMPHOCYTES % (MANUAL) 26 % (16-48); MONOCYTES % (MANUAL) 2 % (0-11.0); NEUTROPHILS % (MANUAL) 68 (42-76); PLATELET ESTIMATE ADEQUATE; REACTIVE LYMPHOCYTES 2 % (0-0)
[2024-05-21 09:19] LABS: ANISOCYTOSIS 1+; HYPOCHROMASIA 1+
[2024-05-21 09:20] LABS: STOMATOCYTES 1+
[2024-05-21] MEDS ORDERED: HEPARIN SODIUM,PORCINE/PF 50 UNIT/5 ML DISP.SYRIN IV ONE (14:30)
[2024-05-22] VITALS: BP 123/56; TEMP 99; O2SAT 100
[2024-05-22 04:00] VITALS: BP 120/66; TEMP 98.8; O2SAT 100
[2024-05-22 08:00] VITALS: BP 133/59; TEMP 98.6; O2SAT 95
[2024-05-22 08:17] LABS: BILIRUBIN,DIRECT 0.2 mg/dL (0.0-0.2); BILIRUBIN,TOTAL 0.3 mg/dL (0.2-1.0)
[2024-05-22 08:27] LABS: ALBUMIN 1.2 g/dL (3.4-5.0)
[2024-05-22 12:00] VITALS: BP 127/61; TEMP 99; O2SAT 100
[2024-05-22 13:42] LABS: CALCIUM, SERUM 8.5 mg/dL (8.5-10.1); CREATININE 4.1 mg/dL (0.6-1.3); POTASSIUM 4.5 mmol/L (3.5-5.1)
[2024-05-22 14:46] LABS: BASOPHILS % (AUTO) 0.5 % (0.0-2.0); EOSINOPHILS % (AUTO) 0.4 % (0.0-6.0); LYMPHOCYTES # (AUTO) 1.4 K/uL (0.8-4.8); LYMPHOCYTES % (AUTO) 16.2 % (20.0-44.0); MEAN CORPUSCULAR HEMOGLOBIN 27 PG (26.0-33.0); MEAN CORPUSCULAR HGB CONC 30 g/dl (31.0-36.0); MEAN CORPUSCULAR VOLUME 92 fL (82-100); MONOCYTES # (AUTO) 0.9 K/uL (0.1-1.30); MONOCYTES % (AUTO) 10.8 % (2.0-12.0); NEUTROPHILS # (AUTO) 6.3 K/uL (1.8-8.9); NEUTROPHILS % (AUTO) 72.1 % (43.0-81.0); PLATELET COUNT (AUTO) 274 K/uL (150-450); WHITE BLOOD COUNT (AUTO) 8.7 K/uL (4.3-11.0)
[2024-05-22 14:47] LABS: RED BLOOD CELL COUNT(AUTO) 1.69 MIL/uL (4.0-5.2)
[2024-05-22 14:49] LABS: HEMATOCRIT 16 % (33-45); HEMOGLOBIN 4.6 g/dL (11.5-14.8)
[2024-05-22 15:28] LABS: LYMPHOCYTES % (MANUAL) 9 % (16-48); NEUTROPHILS % (MANUAL) 88 (42-76)
[2024-05-22 15:29] LABS: MONOCYTES % (MANUAL) 3 % (0-11.0); PLATELET ESTIMATE ADEQUATE
[2024-05-22 15:30] LABS: ANISOCYTOSIS 1+; HYPOCHROMASIA 1+
[2024-05-22 16:00] VITALS: BP 131/66; TEMP 98.4; O2SAT 100
[2024-05-22 20:00] VITALS: BP 140/56; TEMP 98.2; O2SAT 100
[2024-05-23] VITALS: BP 132/53; TEMP 97.9; O2SAT 100
[2024-05-23 04:00] VITALS: BP 129/58; TEMP 98.2; O2SAT 99
[2024-05-23 07:32] LABS: BASOPHILS % (AUTO) 0.5 % (0.0-2.0); EOSINOPHILS # (AUTO) 0.1 K/uL (0.0-0.7); EOSINOPHILS % (AUTO) 0.7 % (0.0-6.0); LYMPHOCYTES # (AUTO) 1.3 K/uL (0.8-4.8); LYMPHOCYTES % (AUTO) 15.7 % (20.0-44.0); MEAN CORPUSCULAR HEMOGLOBIN 27 PG (26.0-33.0); MEAN CORPUSCULAR HGB CONC 29 g/dl (31.0-36.0); MEAN CORPUSCULAR VOLUME 92 fL (82-100); MONOCYTES # (AUTO) 0.9 K/uL (0.1-1.30); NEUTROPHILS % (AUTO) 72.1 % (43.0-81.0); PLATELET COUNT (AUTO) 326 K/uL (150-450); RED CELL DISTRIBUTION WIDTH 26.6 % (11.5-15.0); WHITE BLOOD COUNT (AUTO) 8.3 K/uL (4.3-11.0)
[2024-05-23 07:41] LABS: RED BLOOD CELL COUNT(AUTO) 1.73 MIL/uL (4.0-5.2)
[2024-05-23 07:43] LABS: HEMATOCRIT 16 % (33-45); HEMOGLOBIN 4.7 g/dL (11.5-14.8)
[2024-05-23 07:48] LABS: IRON, SERUM 40 ug/dl (50-175); TOTAL IRON BINDING CAPACITY 179 ug/dl (250-450)
[2024-05-23 07:49] LABS: FERRITIN 425 ng/mL (8-388)
[2024-05-23 07:50] LABS: CALCIUM, SERUM 8.8 mg/dL (8.5-10.1); POTASSIUM 5.2 mmol/L (3.5-5.1)
[2024-05-23 08:00] VITALS: BP 128/54; TEMP 97.7; O2SAT 100
[2024-05-23 12:00] VITALS: BP 135/62; TEMP 97.7; O2SAT 100
[2024-05-23 14:00] LABS: BAND % (MANUAL) 1 % (0.0-5.0); LYMPHOCYTES % (MANUAL) 18 % (16-48); MONOCYTES % (MANUAL) 1 % (0-11.0); NEUTROPHILS % (MANUAL) 80 (42-76)
[2024-05-23 14:01] LABS: ANISOCYTOSIS 1+; HYPOCHROMASIA 1+; PLATELET ESTIMATE ADEQUATE; STOMATOCYTES 1+
[2024-05-23 16:00] VITALS: BP 134/55; TEMP 97.7; O2SAT 100
[2024-05-23] MEDS: HEPARIN SODIUM, PORCINE 1000 UNIT/1 ML VIAL IV ONE (19:45)
[2024-05-23 20:00] VITALS: BP 154/81; TEMP 98.6; O2SAT 100
[2024-05-24] VITALS: BP 102/56; TEMP 99; O2SAT 100
[2024-05-24 04:00] VITALS: BP 117/67; TEMP 98.4; O2SAT 100
[2024-05-24 08:00] VITALS: BP 125/57; TEMP 98.3; O2SAT 99
[2024-05-24 12:00] VITALS: BP 120/57; TEMP 98; O2SAT 98
[2024-05-24 13:56] LABS: BILIRUBIN,DIRECT 0.2 mg/dL (0.0-0.2); BILIRUBIN,TOTAL 0.3 mg/dL (0.2-1.0); TOTAL PROTEIN, SERUM 10.3 g/dL (6.4-8.2)
[2024-05-24 14:02] LABS: ALBUMIN 1.1 g/dL (3.4-5.0)
[2024-05-24 16:00] VITALS: BP 126/56; TEMP 98.1; O2SAT 100
[2024-05-24 20:00] VITALS: BP 130/60; TEMP 99.3; O2SAT 100
[2024-05-25] VITALS (7 sets, daily range): BP systolic 121–133; BP diastolic 53–65; TEMP 97.6–99; O2SAT 100
[2024-05-25 07:33] LABS: BASOPHILS # (AUTO) 0.1 K/uL (0.0-0.2); BASOPHILS % (AUTO) 0.8 % (0.0-2.0); EOSINOPHILS # (AUTO) 0.1 K/uL (0.0-0.7); EOSINOPHILS % (AUTO) 1.2 % (0.0-6.0); LYMPHOCYTES # (AUTO) 1.5 K/uL (0.8-4.8); LYMPHOCYTES % (AUTO) 20.2 % (20.0-44.0); MEAN CORPUSCULAR HEMOGLOBIN 28 PG (26.0-33.0); MEAN CORPUSCULAR HGB CONC 30 g/dl (31.0-36.0); MEAN CORPUSCULAR VOLUME 94 fL (82-100); MONOCYTES # (AUTO) 0.8 K/uL (0.1-1.30); MONOCYTES % (AUTO) 11.1 % (2.0-12.0); NEUTROPHILS % (AUTO) 66.7 % (43.0-81.0); PLATELET COUNT (AUTO) 333 K/uL (150-450); WHITE BLOOD COUNT (AUTO) 7.6 K/uL (4.3-11.0)
[2024-05-25 08:06] LABS: RED BLOOD CELL COUNT(AUTO) 1.65 MIL/uL (4.0-5.2)
[2024-05-25 08:07] LABS: HEMOGLOBIN 4.7 g/dL (11.5-14.8)
[2024-05-25 08:08] LABS: HEMATOCRIT 16 % (33-45)
[2024-05-25] MEDS: PANTOPRAZOLE 40 MG VIAL IV SCH (09:21)
[2024-05-25 10:39] LABS: EOSINOPHILS % (MANUAL) 1 % (0-4); LYMPHOCYTES % (MANUAL) 25 % (16-48); MONOCYTES % (MANUAL) 5 % (0-11.0); NEUTROPHILS % (MANUAL) 69 (42-76)
[2024-05-25 10:42] LABS: ANISOCYTOSIS 2+; PLATELET ESTIMATE ADEQUATE
[2024-05-25 10:43] LABS: STOMATOCYTES 1+
[2024-05-25] MEDS: BACITRACIN ZINC OINT PACKET 1 EA PACKET TP SCH (13:25)
[2024-05-25 15:39] LABS: POTASSIUM 5.2 mmol/L (3.5-5.1)
[2024-05-26] VITALS: BP 129/54; TEMP 98.8; O2SAT 100
[2024-05-26 04:00] VITALS: BP 137/55; TEMP 97.5; O2SAT 100
[2024-05-26 08:00] VITALS: BP 138/51; TEMP 98.1; O2SAT 100
[2024-05-26] MEDS: PANTOPRAZOLE 40 MG/PACK PACK NG SCH (09:37)
[2024-05-26] MEDS: FOLIC ACID 1 MG TABLET NG SCH (09:37)
[2024-05-26] MEDS: FLUCONAZOLE (100 MG) 100 MG TABLET NG SCH (09:38)
[2024-05-26 12:00] VITALS: BP 131/68; TEMP 97.5; O2SAT 100
[2024-05-26 16:00] VITALS: BP 120/58; TEMP 97.4; O2SAT 100
[2024-05-26 20:00] VITALS: BP 121/55; TEMP 99; O2SAT 100
[2024-05-27] VITALS: BP 141/62; TEMP 98.4; O2SAT 100
== END 2024-05-27 02:05 | disposition short-term general hospital (02) | DRG 871 ==
LOC: ER 11:23 → ICU 15:40 → TELE-TD 05-12 19:08 → TELE1 05-13 10:05
PROVIDERS: ADMIT Internal Medicine; ATTEND Internal Medicine
PROC: 5A09557 Assistance with Respiratory Ventilation, Greater than 96 Consecutive Hours, Continuous Positive Airway Pressure (ICD-10-PCS; principal; 2024-04-16)
PROC: 5A1D70Z Performance of Urinary Filtration, Intermittent, Less than 6 Hours Per Day (ICD-10-PCS; 2024-04-19)
PROC: 0W993ZZ Drainage of Right Pleural Cavity, Percutaneous Approach (ICD-10-PCS; 2024-04-20)
PROC: 06HY33Z Insertion of Infusion Device into Lower Vein, Percutaneous Approach (ICD-10-PCS; 2024-04-20)
PROC: 0B9N30Z Drainage of Right Pleura with Drainage Device, Percutaneous Approach (ICD-10-PCS; 2024-04-22)
PROC: 5A09557 Assistance with Respiratory Ventilation, Greater than 96 Consecutive Hours, Continuous Positive Airway Pressure (ICD-10-PCS; 2024-04-25)
DX: A40.3 Sepsis due to Streptococcus pneumoniae (principal); E43 Unspecified severe protein-calorie malnutrition; L89.153 Pressure ulcer of sacral region, stage 3; G92.8 Other toxic encephalopathy; I21.A1 Myocardial infarction type 2; I50.43 Acute on chronic combined systolic (congestive) and diastolic (congestive) heart failure; J15.9 Unspecified bacterial pneumonia; J96.01 Acute respiratory failure with hypoxia; N17.0 Acute kidney failure with tubular necrosis; J86.9 Pyothorax without fistula; J15.4 Pneumonia due to other streptococci; R65.21 Severe sepsis with septic shock; I13.0 Hypertensive heart and chronic kidney disease with heart failure and stage 1 through stage 4 chronic kidney disease, or unspecified chronic kidney disease; D61.818 Other pancytopenia; J90 Pleural effusion, not elsewhere classified; E87.1 Hypo-osmolality and hyponatremia; E87.20 Acidosis, unspecified; R18.8 Other ascites; E78.5 Hyperlipidemia, unspecified; D50.9 Iron deficiency anemia, unspecified; I48.91 Unspecified atrial fibrillation; Z95.2 Presence of prosthetic heart valve; Z79.899 Other long term (current) drug therapy; D63.1 Anemia in chronic kidney disease; E11.22 Type 2 diabetes mellitus with diabetic chronic kidney disease; E83.39 Other disorders of phosphorus metabolism; D69.6 Thrombocytopenia, unspecified; R59.0 Localized enlarged lymph nodes; E87.5 Hyperkalemia; E88.09 Other disorders of plasma-protein metabolism, not elsewhere classified; I25.10 Atherosclerotic heart disease of native coronary artery without angina pectoris; M89.8X9 Other specified disorders of bone, unspecified site; N18.9 Chronic kidney disease, unspecified; E80.6 Other disorders of bilirubin metabolism; L89.899 Pressure ulcer of other site, unspecified stage; Z95.1 Presence of aortocoronary bypass graft; K56.41 Fecal impaction; S01.20XA Unspecified open wound of nose, initial encounter; X58.XXXA Exposure to other specified factors, initial encounter; Y92.9 Unspecified place or not applicable
CPT/HCPCS: 36415; 36600; 70450-TC; 71045-TC; 71250-TC; 74018; 75989; 76700-TC; 76770-TC; 80048-TC; 80053-TC; 80076-TC; 80202-TC; 82232; 82247-TC; 82248-TC; 82378; 82550-TC; 82607-TC; 82728-TC; 82784; 82803-TC; 82962-TC; 83010; 83540-TC; 83605-TC; 83615-TC; 83735-TC; 83880; 83970; 84100-TC; 84155; 84165; 84443-TC; 84484-TC; 85025-TC; 85045-TC; 85396; 85610-TC; 85730-TC; 86225; 86235; 86334; 86431-TC; 86704; 86705; 86706; 86803; 86880-TC; 87040-TC; 87081-TC; 87102-TC; 87186-TC; 87340; 87899; 88108-TC; 88305-TC; 88312-TC; 89051-TC; 90935-TC; 93307-TC; 93970-TC; 94660; 94760-TC; 94761-TC; 94762-TC; 94799-TC; A4216; A4223; A6403; G0378; J0282; J0360; J0456; J0692; J0696; J0885; J1160; J1642; J1644; J1940; J2405; J2470; J2916; J2997; J3490; J7030; J7040; J7042; J7050; J7060; J7070; J7120; P9047